=== PATIENT | male | born 1945 | race Caucasian/White ===

== ENCOUNTER 2021-10-25 18:19 | Emergency (ER) | payer OTHER ==
[~2021-10-25] VITALS: Ht 175.3 cm; Wt 90.7 kg
[~2021-10-25 18:19] MED LIST: DILT120C64; DOXA2TAB; LEVO112T20; SIMV40TA2
[2021-10-26] MEDS ORDERED: DexAMETHasone SOD PHOS 10MG/1ML VIAL INJ IM ONE
[2021-10-26] MEDS ORDERED: AMOX250C3 PO (00:06)
[2021-10-26 00:35] VITALS: BP 142/78
== END 2021-10-26 00:35 | disposition home or self-care (01) ==
LOC: ER 18:20
DX: J06.9 Acute upper respiratory infection, unspecified (principal); B97.89 Other viral agents as the cause of diseases classified elsewhere; I10 Essential (primary) hypertension; E78.5 Hyperlipidemia, unspecified; E03.9 Hypothyroidism, unspecified; Z79.899 Other long term (current) drug therapy; Z88.8 Allergy status to other drugs, medicaments and biological substances
CPT/HCPCS: 70490; 71250; 96374; 99284; J1100

== ENCOUNTER 2023-05-14 11:17 | Emergency (ER) | payer OTHER ==
[~2023-05-14] VITALS: Ht 175.3 cm; Wt 100.0 kg
[~2023-05-14 11:17] MED LIST changes: +AMOX250C3 PO; -DOXA2TAB; +DOXA2TAB84; -SIMV40TA2; +SIMV40TA42
[2023-05-14 11:44] VITALS: PULSE 70; RESP 20; O2SAT 95
[2023-05-14 11:58] LABS: Basophils # (auto) 0.1 10 ^3/uL (0-0.2); Basophils % (auto) 0.9 % (0.0-2.0); Eosinophils # (auto) 0.1 10 ^3/uL (0-0.8); Eosinophils % (auto) 0.9 % (0.0-7.0); Hematocrit 47.6 % (41.0-53.0); Lymphocytes # (auto) 1.5 10 ^3/uL (0.4-5.4); Lymphocytes % (auto) 11.1 % (10.0-50.0); Mean Corpuscular Hemoglobin 29.2 pg (28.0-32.0); Mean Corpuscular Hgb Conc. 33.7 g/dL (32.0-36.0); Mean Corpuscular Volume 86.6 fL (80.0-100.0); Monocytes # (auto) 0.9 10 ^3/uL (0-1.3); Monocytes % (auto) 6.6 % (0.0-12.0); Neutrophils % (auto) 80.5 % (37.0-80.0); Nucleated Red Blood Cells % 0.1 %; Red Cell Distribution Width 13.9 % (11.8-14.3); White Blood Cell 13.7 10^3/uL (4.4-10.8)
[2023-05-14 12:14] LABS: INR 1.13 (0.9-1.15); Partial Thromboplastin Time 27.9 SEC (24.5-34.5); Prothrombin Time 11.8 sec (9.3-11.8)
[2023-05-14 12:26] LABS: Alanine Aminotransferase 49 U/L (7-40); Albumin 5.2 g/dL (3.2-4.8); Alkaline Phosphatase 108 U/L (46-116); Anion Gap 9 (5-15); Aspartate Aminotransferase 33 U/L (13-40); BUN/Creatinine Ratio 18.6 (10.0-20.0); Bilirubin, Total 0.7 mg/dL (0.2-1.0); Blood Urea Nitrogen 18 mg/dL (9-23); Calcium 10.4 mg/dL (8.7-10.4); Carbon Dioxide 25 mmol/L (20-30); Chloride 101 mmol/L (98-107); Glucose 113 mg/dL (74-106); Sodium 135 mmol/L (136-145); Total Protein 7.5 g/dL (5.7-8.2)
[2023-05-14] MEDS ORDERED: PANTOPRAZOLE 40 MG/10 ML VIAL INJ IV ONE (12:30)
[2023-05-14] MEDS ORDERED: ONDANSETRON HCL 4 MG/2 ML VIAL IV ONE (12:30)
[2023-05-14] MEDS ORDERED: LORazepam 2MG/ML-1ML VIAL IV ONE (12:30)
[2023-05-14] MEDS ORDERED: SODIUM CHLORIDE 0.9% 1,000 ML IV ONE (12:30)
[2023-05-14 13:10] LABS: Amphetamine Screen, Urine Neg (NEGATIVE); Barbiturate Scree,Urine Neg (NEGATIVE); Benzodiazephine Screen, Urine Neg (NEGATIVE); Cannabinoid Screen, Urine Pos (NEGATIVE); Cocaine Screen, Urine Neg (NEGATIVE); Opiate Scree,Urine Pos (NEGATIVE); Phencyclidine Screen, Urine Neg (NEGATIVE)
[2023-05-14 13:11] LABS: Blood Alcohol < 3.0 mg/dL (<10)
[2023-05-14] MEDS ORDERED: ASPirin 81 mg TAB PO ONE (14:30)
[2023-05-14] MEDS ORDERED: NITROGLYCERIN 0.4 MG SL TAB SL ONE (14:30)
[2023-05-14 14:45] VITALS: BP 125/70; PULSE 84; RESP 16; TEMP 98.9
[2023-05-14 14:49] VITALS: O2SAT 97
== END 2023-05-14 16:33 | disposition left against medical advice (07) ==
LOC: ER 11:17 → EDBD 11:17 → ER 16:33
DX: R07.89 Other chest pain (principal); I10 Essential (primary) hypertension; E78.5 Hyperlipidemia, unspecified; J45.909 Unspecified asthma, uncomplicated; Z88.8 Allergy status to other drugs, medicaments and biological substances
CPT/HCPCS: 36415; 80053; 80307; 80320; 82962; 83735; 83880; 84443; 84484; 85025; 85610; 85730; 93005; 96361; 96374; 96375; 99285; C9113; J2060; J2405; J7030

== ENCOUNTER 2023-05-15 17:03 | Emergency (ER) | payer OTHER ==
[~2023-05-15] VITALS: Ht 175.3 cm; Wt 100.0 kg
[2023-05-15 18:53] LABS: Alanine Aminotransferase 38 U/L (7-40); Albumin 4.7 g/dL (3.2-4.8); Alkaline Phosphatase 101 U/L (46-116); Anion Gap 10 (5-15); Aspartate Aminotransferase 23 U/L (13-40); BUN/Creatinine Ratio 17.9 (10.0-20.0); Bilirubin, Total 0.6 mg/dL (0.2-1.0); Blood Urea Nitrogen 19 mg/dL (9-23); Calcium 10.1 mg/dL (8.7-10.4); Carbon Dioxide 22 mmol/L (20-30); Chloride 103 mmol/L (98-107); Glucose 91 mg/dL (74-106); Potassium 5.2 mmol/L (3.5-5.1); Sodium 135 mmol/L (136-145); Total Protein 6.9 g/dL (5.7-8.2)
[2023-05-15 19:01] LABS: Basophils # (auto) 0.1 10 ^3/uL (0-0.2); Basophils % (auto) 0.7 % (0.0-2.0); Eosinophils # (auto) 0.1 10 ^3/uL (0-0.8); Eosinophils % (auto) 0.7 % (0.0-7.0); Hematocrit 44.9 % (41.0-53.0); Lymphocytes # (auto) 1.8 10 ^3/uL (0.4-5.4); Lymphocytes % (auto) 11.2 % (10.0-50.0); Mean Corpuscular Hemoglobin 29.2 pg (28.0-32.0); Mean Corpuscular Hgb Conc. 33.3 g/dL (32.0-36.0); Mean Corpuscular Volume 87.7 fL (80.0-100.0); Monocytes # (auto) 1.4 10 ^3/uL (0-1.3); Monocytes % (auto) 9.2 % (0.0-12.0); Neutrophils # (auto) 12.2 10 ^3/uL (1.6-8.6); Neutrophils % (auto) 78.2 % (37.0-80.0); Nucleated Red Blood Cells % 0.1 %; Red Blood Cells 5.12 10^6/uL (4.5-5.90); Red Cell Distribution Width 14.2 % (11.8-14.3); White Blood Cell 15.7 10^3/uL (4.4-10.8)
[2023-05-16 02:55] VITALS: PULSE 105; RESP 20; TEMP 98.1; O2SAT 96
[2023-05-16] MEDS ORDERED: ALPRAZolam 0.5 MG TAB PO ONE (04:00)
[2023-05-16] MEDS ORDERED: LORA-1121 PO (07:03)
[2023-05-16 08:50] VITALS: BP 115/78; PULSE 95; RESP 18; O2SAT 97
== END 2023-05-16 08:50 | disposition home or self-care (01) ==
LOC: EDUNIT# 17:03 → ER 17:03 → EDBD 17:03 → ER 05-16 08:50
DX: F41.8 Other specified anxiety disorders (principal); R07.89 Other chest pain; I10 Essential (primary) hypertension; E78.5 Hyperlipidemia, unspecified; E03.9 Hypothyroidism, unspecified; Z90.49 Acquired absence of other specified parts of digestive tract; Z86.73 Personal history of transient ischemic attack (TIA), and cerebral infarction without residual deficits; Z90.89 Acquired absence of other organs; Z79.2 Long term (current) use of antibiotics; Z79.899 Other long term (current) drug therapy; Z88.8 Allergy status to other drugs, medicaments and biological substances
CPT/HCPCS: 36415; 71046; 80053; 84484; 85025

== ENCOUNTER 2023-05-26 19:18 | Emergency (ER) | payer OTHER ==
[~2023-05-26] VITALS: Ht 177.8 cm; Wt 113.4 kg
[~2023-05-26 19:18] MED LIST changes: +LORA-1121 PO
[2023-05-26] MEDS ORDERED: LORazepam 2MG/ML-1ML VIAL IV ONE (19:30)
[2023-05-26 19:47] VITALS: PULSE 71; RESP 21; O2SAT 99
[2023-05-26 19:56] LABS: Basophils # (auto) 0.1 10 ^3/uL (0-0.2); Basophils % (auto) 0.8 % (0.0-2.0); Eosinophils # (auto) 0.3 10 ^3/uL (0-0.8); Eosinophils % (auto) 2.7 % (0.0-7.0); Hematocrit 45.4 % (41.0-53.0); Hemoglobin 15.1 g/dL (13.5-17.5); Lymphocytes # (auto) 2.4 10 ^3/uL (0.4-5.4); Lymphocytes % (auto) 21.7 % (10.0-50.0); Mean Corpuscular Hemoglobin 29.5 pg (28.0-32.0); Mean Corpuscular Hgb Conc. 33.3 g/dL (32.0-36.0); Mean Corpuscular Volume 88.6 fL (80.0-100.0); Monocytes # (auto) 1.3 10 ^3/uL (0-1.3); Monocytes % (auto) 11.5 % (0.0-12.0); Neutrophils % (auto) 63.3 % (37.0-80.0); Red Blood Cells 5.12 10^6/uL (4.5-5.90); Red Cell Distribution Width 14.1 % (11.8-14.3); White Blood Cell 11.1 10^3/uL (4.4-10.8)
[2023-05-26 20:11] LABS: Alanine Aminotransferase 39 U/L (7-40); Albumin 4.7 g/dL (3.2-4.8); Alkaline Phosphatase 110 U/L (46-116); Anion Gap 9 (5-15); Aspartate Aminotransferase 23 U/L (13-40); BUN/Creatinine Ratio 10.1 (10.0-20.0); Blood Urea Nitrogen 11 mg/dL (9-23); Calcium 9.9 mg/dL (8.7-10.4); Carbon Dioxide 24 mmol/L (20-30); Chloride 101 mmol/L (98-107); Glucose 126 mg/dL (74-106); Magnesium 2.1 mg/dL (1.6-2.6); Potassium 4.2 mmol/L (3.5-5.1); Sodium 134 mmol/L (136-145)
[2023-05-26 20:13] LABS: Urine Bacteria NONE SEEN /hpf (None Seen); Urine Blood Negative /uL (Negative); Urine Clarity Clear (Clear); Urine Color Colorless (Yellow); Urine Protein, UAD Negative (Negative); Urine Specific Gravity 1.005 (1.001-1.035); Urine Urobilinogen Normal (Negative); Urine WBC <1 /hpf (0 - 3); Urine pH 5.5 (5.0-8.0)
[2023-05-26 20:14] LABS: INR 1.04 (0.9-1.15); Partial Thromboplastin Time 27.9 SEC (24.5-34.5); Prothrombin Time 10.9 sec (9.3-11.8)
[2023-05-26 20:35] LABS: Bilirubin, Total 0.7 mg/dL (0.2-1.0)
[2023-05-27] VITALS: BP 124/61; PULSE 65; RESP 22; TEMP 97.9; O2SAT 93
== END 2023-05-27 02:21 | disposition short-term general hospital (02) ==
LOC: ER 19:18 → EDBD 19:18 → ER 05-27 00:45
DX: I24.9 Acute ischemic heart disease, unspecified (principal); R07.9 Chest pain, unspecified; D72.829 Elevated white blood cell count, unspecified; I10 Essential (primary) hypertension; E78.5 Hyperlipidemia, unspecified; Z86.73 Personal history of transient ischemic attack (TIA), and cerebral infarction without residual deficits
CPT/HCPCS: 36415; 71045; 80053; 81001; 83735; 83880; 84484; 85025; 85610; 85730; 93005; 96374; 99285; J2060

== ENCOUNTER 2024-05-09 13:25 | Emergency (ER) | payer OTHER ==
[~2024-05-09] VITALS: Ht 175.3 cm; Wt 100.0 kg
[2024-05-09] MEDS ORDERED: LORazepam 0.5 MG TAB PO ONE (13:45)
[2024-05-09 14:41] LABS: Basophils # (auto) 0.1 10 ^3/uL (0-0.2); Basophils % (auto) 0.8 % (0.0-2.0); Eosinophils # (auto) 0.1 10 ^3/uL (0-0.8); Hematocrit 47.5 % (41.0-53.0); Hemoglobin 16.3 g/dL (13.5-17.5); Lymphocytes # (auto) 1.6 10 ^3/uL (0.4-5.4); Lymphocytes % (auto) 14.4 % (10.0-50.0); Mean Corpuscular Hemoglobin 30.6 pg (28.0-32.0); Mean Corpuscular Hgb Conc. 34.2 g/dL (32.0-36.0); Mean Corpuscular Volume 89.4 fL (80.0-100.0); Monocytes # (auto) 1.3 10 ^3/uL (0-1.3); Monocytes % (auto) 11.6 % (0.0-12.0); Neutrophils # (auto) 7.9 10 ^3/uL (1.6-8.6); Neutrophils % (auto) 72.2 % (37.0-80.0); Nucleated Red Blood Cells % 0.1 %; Platelet Count (auto) 284 10^3/uL (140-450); Red Blood Cells 5.31 10^6/uL (4.5-5.90); Red Cell Distribution Width 14.3 % (11.8-14.3)
[2024-05-09] MEDS: LORazepam 0.5 MG TAB PO ONE (14:47)
[2024-05-09 15:12] LABS: Alanine Aminotransferase 29 U/L (7-40); Albumin 4.6 g/dL (3.2-4.8); Alkaline Phosphatase 103 U/L (46-116); Anion Gap 7 (5-15); Aspartate Aminotransferase 15 U/L (13-40); Bilirubin, Total 0.6 mg/dL (0.2-1.0); Blood Alcohol < 3.0 mg/dL (<10); Blood Urea Nitrogen 16 mg/dL (9-23); Calcium 10.2 mg/dL (8.7-10.4); Carbon Dioxide 25 mmol/L (20-31); Chloride 107 mmol/L (98-107); Glucose 103 mg/dL (74-106); Potassium 3.8 mmol/L (3.5-5.1); Sodium 139 mmol/L (136-145)
[2024-05-09 16:43] LABS: Urine Bacteria None Seen /hpf (None Seen)
[2024-05-09 17:12] LABS: Urine Blood Negative /uL (Negative); Urine Clarity Clear (Clear); Urine Color Yellow (Yellow); Urine Mucus FEW (None Seen); Urine Protein, UAD Negative (Negative); Urine Urobilinogen Normal (Negative); Urine WBC 2 /hpf (0 - 3)
[2024-05-09 17:17] LABS: Amphetamine Screen, Urine Neg (NEGATIVE); Barbiturate Scree,Urine Neg (NEGATIVE); Benzodiazephine Screen, Urine Neg (NEGATIVE); Cannabinoid Screen, Urine Pos (NEGATIVE); Cocaine Screen, Urine Neg (NEGATIVE); Opiate Scree,Urine Neg (NEGATIVE); Phencyclidine Screen, Urine Neg (NEGATIVE)
[2024-05-09] MEDS ORDERED: HYDR50TA32 PO (21:13)
[2024-05-09 22:13] VITALS: BP 146/90; PULSE 87; RESP 19; TEMP 97.6; O2SAT 97
== END 2024-05-09 22:13 | disposition home or self-care (01) ==
LOC: EDBD 13:25 → ER 13:37
DX: F41.9 Anxiety disorder, unspecified (principal); I10 Essential (primary) hypertension; E07.9 Disorder of thyroid, unspecified; E78.5 Hyperlipidemia, unspecified; Z86.73 Personal history of transient ischemic attack (TIA), and cerebral infarction without residual deficits; Z90.49 Acquired absence of other specified parts of digestive tract; Z90.89 Acquired absence of other organs; Z98.890 Other specified postprocedural states; Z79.899 Other long term (current) drug therapy
CPT/HCPCS: 36415; 80053; 80307; 80320; 81001; 83880; 84484; 85025; 93005

== ENCOUNTER 2024-06-07 10:15 | Inpatient (IN) | payer OTHER ==
[~2024-06-07] VITALS: Ht 175.3 cm; Wt 94.4 kg
[~2024-06-07 10:15] MED LIST changes: +HYDR50TA32 PO; -LEVO112T20; +LEVO112T20 PO
--- NOTE | 2024-06-07 10:56 | ED.PDOC ---
HPI Comments 78 y.o male with PMH of TIA, [place], CHF, HTN, hyperlipidemia, PreDM, thyroid disease, asthma, depression, presents to the ED via EMS for a chief complaint of left sided chest discomfort radiating to his left arm that started 2 weeks ago. Patient reports pain is constant, rating a 4/10 today and later decreasing to 2/10 s/p EMS giving 324mg ASA and 0.5mg NTG on scene. Patient also complains of exertional dyspnea. No alleviating or precipitating factors reported. Patient was seen by his PCP on 05/29/24 at [facility], had a WBC of 29.3 and was placed on antibiotics. Patient at this time denies any nausea, vomiting, diarrhea, abdominal pain, fever, chills or leg swelling. Patient is compliant with all medication intake. Chief Complaint: Chest Pain Time Seen by MD: 10:32 Primary Care Provider: FLAXTON Reviewed Notes: Nurses Notes, Machine Programmer Notes, Medications, Allergies Allergies: Coded Allergies: Methysergide (Verified Allergy, Unknown, PSYCH/VISION, 05/14/23) Naproxen (Verified Allergy, Unknown, 05/14/23) Home Meds Active Scripts Hydroxyzine HCl (Hydroxyzine Hydrochloride) 50 Mg Tab, 50 MG PO Q6HP PRN, #30 TAB prn anxiety Prov:MARCIAL WEST MD 05/09/24 Lorazepam (ATIVAN TABLET) 0.5 Mg Tb, 1 TAB PO DAILY, #30 TAB Prov:BRITTNEY COUCH MD 05/16/23 Amoxicillin Trihydrate (Amoxicillin) 250 Mg Cap, 250 MG PO Q8HR for 7 Days, #28 MG Prov:LISA RIVERA MD 10/26/21 Reported Medications Simvastatin (Zocor) 40 Mg Tab 02/26/11 Levothyroxine Sodium (Levothroid) 112 Mcg Tab 02/26/11 Diltiazem Hcl (Diltiazem Cd) 120 Mg Cap 02/26/11 Doxazosin Mesylate (Cardura) 2 Mg Tab 02/26/11 Information Source: Patient, Emergency Med Personnel Mode of Arrival: EMS Severity: Moderate Timing: Weeks (2) Duration: Since onset Prehospital treatment: 12 Lead EKG, ASA, Wind Turbine Technician, NTG Location: Chest (L) Radiation: Arm (L) Quality: Aching Onset: At Rest Cardiac Risk Factors: Family History, Hyperlipidemia, HTN, Diabetes PE Risk Factors: None History of: [place] Modifying Factors: Nothing; Exertion Associated Signs and Symptoms: SOB Past Medical History PAST MEDICAL HISTORY: Anxiety, High Lipids, HTN, [place], Thyroid, TIA Surgical History: Appendectomy, Hernia Repair, Tonsillectomy Family History Family History: Family hx of heart donn Social History Smoker: Non-Smoker Alcohol: Denies ETOH Use Drugs: Denies Drug Use Lives In: Home Constitutional: denies: chills, diaphoresis, fatigue, fever, malaise, sweats, weakness, others EENTM: denies: blurred vision, double vision, ear bleeding, ear discharge, ear drainage, ear pain, ear ringing, eye pain, eye redness, hearing loss, mouth pain, mouth swelling, nasal discharge, nose bleeding, nose congestion, nose pain, photophobia, tearing, throat pain, throat swelling, voice changes, others Respiratory: reports: shortness of breath, SOB with excertion; denies: cough, hemoptysis, orthopnea, SOB at rest, stridor, wheezing, others Cardiovascular: reports: chest pain, left arm pain; denies: dizzy spells, diaphoresis, Dyspnea on exertion, edema, irregular heart beat, lightheadedness, palpitations, PND, syncope, others Gastrointestinal: denies: abdomen distended, abdominal pain, blood streaked bowels, constipated, diarrhea, dysphagia, difficulty swallowing, hematemesis, melena, nausea, poor appetite, poor fluid intake, rectal bleeding, rectal pain, vomiting, others Genitourinary: denies: burning, dysuria, flank pain, frequency, hematuria, incontinence, penile discharge, penile sore, pain, testicle pain, testicle swelling, urgency, others Neurological: denies: dizziness, fainting, headache, left sided numbness, left sided weakness, numbness, paresthesia, pre-existing deficit, right sided numbness, right sided weakness, seizure, speech problems, tingling, tremors, weakness, others Musculoskeletal: denies: back pain, gout, joint pain, joint swelling, muscle pain, muscle stiffness, neck pain, others Integumetry: denies: bruises, change in color, change in hair/nails, dryness, laceration, lesions, lumps, rash, wounds, others Allergic/Immunocompromised: denies: Difficulty Healing, Frequent Infections, Hives, Itching, others Hematologic/Lymphatic: denies: anemia, blood clots, easy bleeding, easy bruising, swollen glands, others Endocrine: denies: excessive hunger, excessive sweating, excessive thirst, excessive urination, flushing, intolerance to cold, intolerance to heat, unexplained weight gain, unexplained weight loss, others Psychiatric: denies: anxiety, bipolar disorder, depression, hopeless, panic disorder, schizophrenia, sleepless, suicidal, others All Other Systems: Reviewed and Negative Physical Exam General Appearance: Moderate Distress HEENT: Normal ENT Inspection, Pharynx Normal, TMs Normal Neck: Full Range of Motion, Non-Tender, Normal, Normal Inspection Respiratory: Chest Non-Tender, Lungs Clear, No Accessory Muscle Use, No Respiratory Distress, Normal Breath Sounds Cardiovascular: No Edema, No JVD, No Murmur, No Gallop, Normal Peripheral Pulses, Regular Rate/Rhythm Breast Exam: Deferred Gastrointestinal: No Organomegaly, Non Tender, No Pulsatile Mass, Normal Bowel Sounds, Soft Genitalia: Deferred Pelvic: Deferred Rectal: Deferred Extremities: No calf tenderness, Normal capillary refill, Normal inspection, Normal range of motion, Non-tender, No pedal edema Musculoskeletal : Apperance: Normal Neurologic: Alert, reconditioning associate II-XII nml as Tested, No Motor Deficits, Normal Affect, Normal Mood, No Sensory Deficits Cerebellar Function: Normal Reflexes: Normal Skin: Dry, Normal Color, Warm Lymphatic: No Adenopathy EKG EKG : Pulse Rate (adult): 92 [place]: LAD Cardiac Rhythm: NSR ST: Nonsp Was a procedure done? Was a procedure done?: No CP Differential Dx Differential Diagnosis: [place] Differential Diagnosis: Angina, Chest Wall Pain, Costochondritis, Gastritis, Myocardial Infarction, Pericarditis X-Ray, Labs, Meds, VS Vital Signs Date Time Temp Pulse Resp B/P (MAP) Pulse Ox O2 Delivery O2 Flow Rate FiO2 06/07/24 13:15 102 17 94/61 (72) 99 06/07/24 11:20 90 06/07/24 11:15 98.0 96 16 130/73 (92) 97 98.0 06/07/24 11:15 96 16 97 Room Air* 0 21 06/07/24 10:57 98.3 112 16 168/80 (109) 98 06/07/24 10:56 92 11/8/24 10:19 92 Lab Test 06/07/24 13:15 06/07/24 11:15 06/07/24 11:10 Range/Units Lactic Acid Level Pending 2.1 H 0.4-2.0 mmol/L Troponin I High Sensitivity 10 9 </=54 ng/L White Blood Count 12.3 H 4.4-10.8 10^3/uL Red Blood Count 5.49 4.5-5.90 10^6/uL Hemoglobin 16.5 13.5-17.5 g/dL Hematocrit 48.7 41.0-53.0 % Mean Corpuscular Volume 88.7 80.0-100.0 fL Mean Corpuscular Hemoglobin 30.1 28.0-32.0 pg Mean Corpuscular Hemoglobin Concent 33.9 32.0-36.0 g/dL Red Cell Distribution Width 14.4 H 11.8-14.3 % Platelet Count 422 140-450 10^3/uL Mean Platelet Volume 7.6 6.9-10.8 fL Neutrophils (%) (Auto) 75.3 37.0-80.0 % Lymphocytes (%) (Auto) 12.2 10.0-50.0 % Monocytes (%) (Auto) 10.7 0.0-12.0 % Eosinophils (%) (Auto) 1.0 0.0-7.0 % Basophils (%) (Auto) 0.8 0.0-2.0 % Neutrophils # (Auto) 9.3 H 1.6-8.6 10 ^3/uL Lymphocytes # (Auto) 1.5 0.4-5.4 10 ^3/uL Monocytes # (Auto) 1.3 0-1.3 10 ^3/uL Eosinophils # (Auto) 0.1 0-0.8 10 ^3/uL Basophils # (Auto) 0.1 0-0.2 10 ^3/uL Nucleated Red Blood Cells 0.1 % Sodium Level 139 136-145 mmol/L Potassium Level 4.2 3.5-5.1 mmol/L Chloride Level 105 98-107 mmol/L Carbon Dioxide Level 27 20-31 mmol/L Anion Gap 7 5-15 Blood Urea Nitrogen 16 9-23 mg/dL Creatinine 1.00 0.700-1.30 mg/dL Glomerular Filtration Rate Calc 78 >90 mL/min BUN/Creatinine Ratio 16.0 10.0-20.0 Serum Glucose 118 H 74-106 mg/dL Calcium Level 10.4 8.7-10.4 mg/dL B-Type Natriuretic Peptide 70.42 0-100 pg/mL Urine Color Light-yellow Yellow Urine Clarity Clear Clear Urine pH 6.0 5.0-9.0 Urine Specific [place] 1.005 1.001-1.035 Urine Protein Negative Negative Urine Ketones Negative Negative Urine Blood Negative Negative /uL Urine Nitrite Negative Negative Urine Bilirubin Negative Negative Urine Urobilinogen Normal Negative mg/dL Urine Leukocyte Esterase Negative Negative /uL Urine RBC 1 0 - 3 /hpf Urine WBC <1 0 - 3 /hpf Urine Squamous Epithelial Cells None seen <5 /hpf Urine Bacteria None seen None Seen /hpf Urine Glucose Normal Normal mg/dL Current Medications Medications (Trade) Dose Ordered Sig/Shruthi Route Start Time Stop Time Status Last Admin Lorazepam (Ativan Inj) 0.5 mg ONCE ONCE IV 06/07/24 11:30 06/07/24 11:31 DC 06/07/24 11:35 CHEST RADIOGRAPH IMPRESSION: No acute cardiopulmonary disease. The urine test is negative The patient was given Ativan 0.9 mg IV push The patient was still having persistent chest pain The patient's CBC and chemistry panel came back within normal limits except for an elevated CBC of 12.3 The lactic acid level is 2.1 The chemistry panel is within normal limits The BNP is within normal limits. We contacted [facility] and the patient is considered to be unstable for transfer secondary to the persistent chest pain At this time, they did give us authorization for admission The admission authorization #[id number] Images Reviewed?: Images reviewed and evaluated by me Time of 1ST Reevaluation: 10:56 Reevaluation 1ST: Unchanged Patient Education/Counseling: Diagnosis, Treatment, Prognosis Family Education/Counseling: No Family Present Departure 1 Departure Time of Disposition: 12:53 Impression: Primary Impression: Acute myocardial ischemia Disposition: 09 ADMITTED INPATIENT Admit to: [facility] Condition: Fair Critical Care Note Critical Care Time?: No Stability Stability form required: Yes Unstable for transfer: Telemetry monitoring (Telemetry monitoring required), ED Physician Assesment (Clinical assesment) Heart Score Heart Score: Heart Score Response (Comments) Value History Moderate Suspicious 1 EKG Normal 0 Age >65 2 Risk Factors >3 or Hx ASHD 2 Troponin N/A 0 Total 5 I personally scribed for BRITTNEY COUCH MD ([email or web address]) on 06/07/24 at 10:56. Electronically submitted by Susan Fuentes ([facility]). I personally scribed for BRITTNEY COUCH MD ([email or web address]) on 06/07/24 at 12:44. Electronically submitted by Susan Fuentes ([facility]). BRITTNEY COUCH MD Jun 07, 2024 10:56
[2024-06-07 11:15] VITALS: PULSE 96; RESP 16; O2SAT 97
[2024-06-07 11:33] LABS: Urine Bacteria None Seen /hpf (None Seen)
[2024-06-07 11:34] LABS: Basophils # (auto) 0.1 10 ^3/uL (0-0.2); Basophils % (auto) 0.8 % (0.0-2.0); Eosinophils # (auto) 0.1 10 ^3/uL (0-0.8); Hematocrit 48.7 % (41.0-53.0); Hemoglobin 16.5 g/dL (13.5-17.5); Lymphocytes # (auto) 1.5 10 ^3/uL (0.4-5.4); Lymphocytes % (auto) 12.2 % (10.0-50.0); Mean Corpuscular Hemoglobin 30.1 pg (28.0-32.0); Mean Corpuscular Hgb Conc. 33.9 g/dL (32.0-36.0); Mean Corpuscular Volume 88.7 fL (80.0-100.0); Monocytes # (auto) 1.3 10 ^3/uL (0-1.3); Monocytes % (auto) 10.7 % (0.0-12.0); Neutrophils # (auto) 9.3 10 ^3/uL (1.6-8.6); Neutrophils % (auto) 75.3 % (37.0-80.0); Nucleated Red Blood Cells % 0.1 %; Platelet Count (auto) 422 10^3/uL (140-450); Red Blood Cells 5.49 10^6/uL (4.5-5.90); Red Cell Distribution Width 14.4 % (11.8-14.3); White Blood Cell 12.3 10^3/uL (4.4-10.8)
[2024-06-07] MEDS: LORazepam 2MG/ML-1ML VIAL IV ONE (11:35)
[2024-06-07 11:41] LABS: Urine Blood Negative /uL (Negative); Urine Clarity Clear (Clear); Urine Color Light-Yellow (Yellow); Urine Protein, UAD Negative (Negative); Urine Specific Gravity 1.005 (1.001-1.035); Urine Urobilinogen Normal (Negative); Urine WBC <1 /hpf (0 - 3)
[2024-06-07 11:43] LABS: Chloride 105 mmol/L (98-107); Potassium 4.2 mmol/L (3.5-5.1); Sodium 139 mmol/L (136-145)
--- NOTE | 2024-06-07 11:43 | ECG ---
[facility] Test Date: 2024-06-07 Test Time: 10:19:08 Pat Name: ANA LAURA CAO Department: ED Room: Gender: M Gut Dropper: JAMEL : 1945 Requested By: BRITTNEY COUCH Order Number: [id number] Reading MD: Measurements Intervals [place] Rate: 92 P: 40 [place]: 240 QRS: -65 QRSD: 113 T: 36 QT: 372 QTc: 461 Interpretive Statements Sinus rhythm Multiform ventricular premature complexes Prolonged [place] interval LAD, consider left anterior fascicular block Anteroseptal infarct, old Minimal ST depression, inferior leads Minimal ST elevation, lateral leads Please click the below link to view image of tracing.
[2024-06-07 11:44] LABS: Anion Gap 7 (5-15); Calcium 10.4 mg/dL (8.7-10.4); Carbon Dioxide 27 mmol/L (20-31)
--- NOTE | 2024-06-07 11:44 | ECG ---
[facility] Test Date: 2024-06-07 Test Time: 11:20:51 Pat Name: ANA LAURA CAO Department: ED Room: Gender: M Pressing Department Supervisor: JAMEL : 1945 Requested By: BRITTNEY COUCH Order Number: [id number] Reading MD: Measurements Intervals [place] Rate: 90 P: -36 [place]: 240 QRS: -65 QRSD: 114 T: 73 QT: 364 QTc: 446 Interpretive Statements Sinus rhythm Ventricular premature complex Prolonged [place] interval LAD, consider left anterior fascicular block Probable anteroseptal infarct, old Please click the below link to view image of tracing.
[2024-06-07 11:48] LABS: Lactic Acid w/Reflex 2.1 mmol/L (0.4-2.0)
[2024-06-07 11:49] LABS: Blood Urea Nitrogen 16 mg/dL (9-23); Glucose 118 mg/dL (74-106)
--- NOTE | 2024-06-07 12:17 | DVH ---
CHEST RADIOGRAPH Indication:sob Technique: Single frontal view of the chest was obtained Comparison: XY CHEST PORTABLE on DOS: 05/26/23 FINDINGS: Lines and Tubes: None Lungs: No focal consolidation. Pleura: No effusion. No pneumothorax. Cardiomediastinal contours: Unremarkable Bones: No acute osseous abnormality. IMPRESSION: No acute cardiopulmonary disease.
[2024-06-07] MEDS ORDERED: NITROGLYCERIN 0.4 MG SL TAB SL PRN (15:15)
[2024-06-07] MEDS ORDERED: HYDROcodone-ACET 5/325MG TAB PO PRN (15:15)
[2024-06-07] MEDS ORDERED: ACETAMINOPHEN 500 MG TAB PO PRN (15:15)
[2024-06-07] MEDS ORDERED: ONDANSETRON HCL 4 MG/2 ML VIAL IV PRN (15:15)
[2024-06-07] MEDS ORDERED: MORPHINE SULFATE INJ 2 MG/ml SYRG IV PRN ×2 (15:15)
--- NOTE | 2024-06-07 15:16 | DVHHP2 ---
History of Present Illness Reason for Visit: Palpitations,-Arm paresthesia, tremors History of Present Illness Patient was a 78-year-old male presenting to the emergency room with multiple complaints including palpitations, tremors to his upper extremities, swelling to his hands and feet, as well as reporting finishing an antibiotic course by his primary doctor at [place] for which she states he was not given a diagnosis. Patient states that he was told his white blood cell count was elevated, and has been having: Flu-like symptoms since the end of March. Twelve lead ECG in terpretation reveals first-degree block at as well as left anterior fascicular block. Bedside EKG reveals questionable second-degree type 1 heart block. Significant history of the patient includes severe anxiety disorder, hypertension, dyslipidemia, patient is and BPH. Cardiovascular: HTN, hyperipidemia Pulmonary: Pneumonia Psych: Anxiety Renal/: Benign prostatic enlarg. Endocrine: Hypothyroidism Past Surgical History: None Smoke: # pack years ALCOHOL: none Drugs: None Lives: with Family Review of Systems Constitutional: Yes: Weakness, Malaise Eyes: No: Pain, Vision change, Conjunctivae inflammation, Eyelid inflammation, Other, Redness ENT: No: Ear pain, Ear discharge, Nose pain, Nose discharge, Nose congestion, Mouth pain, Mouth swelling, Throat pain, Throat swelling, Other Respiratory: No: Cough, Dry, Shortness of breath, SOB with excertion, Wheezing, Hemoptysis, Pleuritic Pain, Sputum, Wheezing, Other Cardiovascular: Chest Pain, Palpitations Gastrointestinal: No: Nausea, Vomiting, Abdominal Pain, Diarrhea, Constipation, Melena, Hematochezia, Other Genitourinary: No Dysuria, No Frequency, No Incontinence, No Hematuria, No Retention, No Other Musculoskeletal: No: other, neck pain, shoulder pain, arm pain, back pain, hand pain, leg pain, foot pain Skin: No: Rash, Lesions, Jaundice, Bruising, Other Neurological: No: Weakness, Numbness, Incoordination, Change in speech, Confusion, Seizures, Other Allergies: Coded Allergies: Methysergide (Verified Allergy, Unknown, PSYCH/VISION, 05/14/23) Naproxen (Verified Allergy, Unknown, 05/14/23) Exam Vital Signs Vital Signs Date Time Temp Pulse Resp B/P (MAP) Pulse Ox O2 Delivery O2 Flow Rate FiO2 06/07/24 14:12 82 15 121/88 (99) 98 06/07/24 11:15 98.0 98.0 06/07/24 11:15 Room Air* 0 21 General Appearance: Alert, Oriented X3, Cooperative, mild distress HEENT: Atraumatic, PERRLA Respiratory: Clear to auscultation, Normal air movement Cardiovascular: Normal S1, Normal S2 Abdominal: Normal bowel sounds, Soft, No tenderness, No hepatospenomegaly Extremities: No clubbing, No cyanosis, No edema, Normal pulses, No tenderness/swelling Skin: No rashes, No breakdown Neuro: Normal gait, Normal speech, Cranial nerves 3-12 NL Psych/Mental Status: Mental status NL, Mood NL Labs/Xrays Labs Test 06/07/24 13:15 06/07/24 11:15 06/07/24 11:10 Range/Units Lactic Acid Level 1.5 0.4-2.0 mmol/L Troponin I High Sensitivity 10 </=54 ng/L White Blood Count 12.3 H 4.4-10.8 10^3/uL Red Blood Count 5.49 4.5-5.90 10^6/uL Hemoglobin 16.5 13.5-17.5 g/dL Hematocrit 48.7 41.0-53.0 % Mean Corpuscular Volume 88.7 80.0-100.0 fL Mean Corpuscular Hemoglobin 30.1 28.0-32.0 pg Mean Corpuscular Hemoglobin Concent 33.9 32.0-36.0 g/dL Red Cell Distribution Width 14.4 H 11.8-14.3 % Platelet Count 422 140-450 10^3/uL Mean Platelet Volume 7.6 6.9-10.8 fL Neutrophils (%) (Auto) 75.3 37.0-80.0 % Lymphocytes (%) (Auto) 12.2 10.0-50.0 % Monocytes (%) (Auto) 10.7 0.0-12.0 % Eosinophils (%) (Auto) 1.0 0.0-7.0 % Basophils (%) (Auto) 0.8 0.0-2.0 % Neutrophils # (Auto) 9.3 H 1.6-8.6 10 ^3/uL Lymphocytes # (Auto) 1.5 0.4-5.4 10 ^3/uL Monocytes # (Auto) 1.3 0-1.3 10 ^3/uL Eosinophils # (Auto) 0.1 0-0.8 10 ^3/uL Basophils # (Auto) 0.1 0-0.2 10 ^3/uL Nucleated Red Blood Cells 0.1 % Sodium Level 139 136-145 mmol/L Potassium Level 4.2 3.5-5.1 mmol/L Chloride Level 105 98-107 mmol/L Carbon Dioxide Level 27 20-31 mmol/L Anion Gap 7 5-15 Blood Urea Nitrogen 16 9-23 mg/dL Creatinine 1.00 0.700-1.30 mg/dL Glomerular Filtration Rate Calc 78 >90 mL/min BUN/Creatinine Ratio 16.0 10.0-20.0 Serum Glucose 118 H 74-106 mg/dL Calcium Level 10.4 8.7-10.4 mg/dL B-Type Natriuretic Peptide 70.42 0-100 pg/mL Urine Color Light-yellow Yellow Urine Clarity Clear Clear Urine pH 6.0 5.0-9.0 Urine Specific [place] 1.005 1.001-1.035 Urine Protein Negative Negative Urine Ketones Negative Negative Urine Blood Negative Negative /uL Urine Nitrite Negative Negative Urine Bilirubin Negative Negative Urine Urobilinogen Normal Negative mg/dL Urine Leukocyte Esterase Negative Negative /uL Urine RBC 1 0 - 3 /hpf Urine WBC <1 0 - 3 /hpf Urine Squamous Epithelial Cells None seen <5 /hpf Urine Bacteria None seen None Seen /hpf Urine Glucose Normal Normal mg/dL Assessment/Plan Assessment/Plan Impression: -palpitations -bifascicular heart block, rule out second-degree type 1 heart block -rule out ACS -obesity -anxiety disorder -leukocytosis -BPH -dyslipidemia -hypothyroidism Plan: -patient continues to have multiple symptoms and has been deemed unstable to transfer to [facility] from the ER. -troponins x3, currently unremarkable -EKG x3 -start aspirin -check ESR, CRP -check TSH given patient reports having hypothyroidism and has difficulty sleeping more than 2 hours a night. -restart statin -echocardiogram -further course of treatment per diagnostic findings Total time spent with patient discussing and formulating plan of care: 35 minutes. This medical document was created using an electronic medical record system with [employer] dictation system. Although this document has been carefully reviewed, there may still be some phonetic and typographical errors. These areas are purely typographical due to imperfections of the software programs, and do not reflect any compromise in the patient's medical care. Plan discussed with: Patient, Other (RN) My Orders Orders - MELISSA BRAVO NP Procedure Category Date Status Time Admit ADMIT 06/07/24 Verified 15:01 Nitroglycerin PHA 06/07/24 Verified Sublingual (Ntrostat 15:15 Morphine Sulfate PHA 06/07/24 Verified Injection 15:15 Stat Ekg For Chest SHORTY 06/07/24 Verified Pain 15:01 Notify Md Of Changes [facility] 06/07/24 Verified From Base 15:01 Biomedical Service Engineer For [facility] 06/07/24 Verified 24 Hours 15:01 Emergency Dysrhythmia [facility] 06/07/24 Verified Protocol 15:01 Rhythm Strips Once SHORTY 06/07/24 Verified Every Shift 15:01 Oxygen By Nasal RT 06/07/24 Verified Cannula 15:01 Erythrocyte LAB 06/07/24 Verified Sedimentation Rate 15:01 C-Reactive Protein LAB 06/08/24 Verified 04:00 Aspirin Enteric PHA 06/08/24 Verified Coated Tablet 10:00 Thyroid Stimulating LAB 06/07/24 Verified Hormone 15:01 Tamsulosin PHA 06/07/24 Verified Hydrochloride (Flomax) 18:00 Date of Service: Jun 07, 2024 Billing Provider: MELISSA BRAVO NP Common Visit Codes: [id number] INP/OBS CARE (HIGH) MELISSA BRAVO NP Jun 07, 2024 15:16
[2024-06-07 15:53] LABS: Hematocrit 47.9 % (41.0-53.0); Hemoglobin 16.4 g/dL (13.5-17.5); Mean Corpuscular Hemoglobin 30.1 pg (28.0-32.0); Mean Corpuscular Hgb Conc. 34.4 g/dL (32.0-36.0); Mean Corpuscular Volume 87.7 fL (80.0-100.0); Platelet Count (auto) 444 10^3/uL (140-450); Red Blood Cells 5.46 10^6/uL (4.5-5.90); Red Cell Distribution Width 14.2 % (11.8-14.3); White Blood Cell 13.3 10^3/uL (4.4-10.8)
[2024-06-07 16:02] LABS: Basophils % (manual) 0 (0.0-2.0); Blast Cells 0; Eosinophils % (manual) 0 (0-7); Metamyelocytes % 0; Myelocytes % 0; Promyelocytes % 0; Reactive Lymphocytes 0
[2024-06-07 16:08] LABS: Triglycerides 128 mg/dL (< 150)
[2024-06-07 16:09] LABS: LDL Cholesterol 74 mg/dL (< 100)
[2024-06-07 16:10] LABS: Cholesterol 128 mg/dL (< 200); HDL Cholesterol 38 mg/dL (40-59)
[2024-06-07 16:21] LABS: Erythrocyte Sedimentation Rate 12 mm/hr (0-20)
[2024-06-07 16:39] LABS: Band Neutrophils % (manual) 3; Lymphocytes % (manual) 15 (10.0-50.0); Monocytes % (manual) 17 (0-12); Platelet Estimate Adequate
[2024-06-07 18:17] VITALS: BP 135/90; PULSE 88; TEMP 98
[2024-06-07 18:44] VITALS: PULSE 108; RESP 13; O2SAT 98
[2024-06-07] MEDS: LORazepam 0.5 MG TAB PO PRN (19:03)
[2024-06-07 20:00] VITALS: PULSE 93; PULSE 95; RESP 16; O2SAT 94
[2024-06-07] MEDS: TAMSULOSIN HYDROCHLORIDE 0.4 MG CAP PO SCH (20:13)
[2024-06-07] MEDS ORDERED: MONT10TA23 PO (20:46)
[2024-06-07] MEDS ORDERED: OMEP-434 PO (20:46)
[2024-06-07 21:00] VITALS: BP_SYST 149; BP_SYST 158; BP_DIAS 84; BP_DIAS 88; PULSE 95; RESP 16; TEMP 98.3; O2SAT 94
[2024-06-07] MEDS: ATORVASTATIN 20 MG TAB PO SCH (22:00)
[2024-06-07] MEDS: traZODone HCL 50 MG TAB PO SCH (22:00)
[2024-06-08] VITALS (8 sets, daily range): BP systolic 106–140; BP diastolic 56–83; PULSE 71–101; RESP 16–19; TEMP 97.7–98.2; O2SAT 94–98
[2024-06-08 07:27] LABS: Anion Gap 6 (5-15); Calcium 9.6 mg/dL (8.7-10.4); Carbon Dioxide 27 mmol/L (20-31); Chloride 108 mmol/L (98-107); Sodium 141 mmol/L (136-145)
[2024-06-08 07:33] LABS: BUN/Creatinine Ratio 19.2 (10.0-20.0); Blood Urea Nitrogen 19 mg/dL (9-23); Glucose 104 mg/dL (74-106)
[2024-06-08 07:43] LABS: CRP High Sensitivity 1.73 mg/dL (<1.0)
[2024-06-08] MEDS: ASPirin-EC 81 mg tab PO SCH ×2 (08:44→17:07)
[2024-06-08] MEDS: ATORVASTATIN 20 MG TAB PO SCH (12:05)
[2024-06-08] MEDS ORDERED: TAMS0.4C39 PO (12:42)
[2024-06-08] MEDS ORDERED: ASPI1TAB20 PO (12:42)
[2024-06-08] MEDS ORDERED: ATOR40TA52 PO (12:42)
[2024-06-08] MEDS ORDERED: FLUT1AER7 IN (12:42)
[2024-06-08] MEDS ORDERED: LEVO150T10 PO (15:31)
--- NOTE | 2024-06-08 16:52 | DVHINCON2 ---
Date Seen: Jun 08, 2024 Referring Physician MD Elva Reason for Consultation Palpitations History of Present Illness This is a pleasant 78-year-old man who presented to the emergency room via EMS with a chief complaint of chest pain. Describes his chest pain as left-sided, throbbing in nature, radiating to his left arm, constant, and associated with dyspnea on exertion and palpitations. He was medicated with ASA 324 mg p.o. x1 and NTG 0.4 mg SL x1 with mild relief of symptoms. He underwent a 12 lead electrocardiogram revealing a sinus rhythm with an incomplete left bundle branch block and first-degree AV block. Serial troponin levels are negative. Reports undergoing an unremarkable echocardiogram and nonischemic Cardiolite stress test with his primary home staging specialist at [place] in 2022. Denies undergoing cardiac catheterizations in the past. Reports a significant family history for cardiovascular disease including multiple family members from massive myocardial infarctions including mother, father, uncles, and grandparents on both sides. Significant medical history includes hypertension, dyslipidemia, prediabetes, thyroid disease, a silent myocardial infarction diagnosed by primary home staging specialist in 2020, TIA in 2011, benign prostatic hyperplasia remote history of smoking x 10 pack-years, obesity, anxiety, and severe depression. Past Medical History Past medical history reviewed. No other significant than mentioned above. Past Surgical History Past surgical history reviewed. No other significant than mentioned above. Family History: Ischemic heart disease G8 MOTHER G8 FATHER Family History Family history reviewed, see HPI. Social History Denies the use of illicit drugs, alcohol, or tobacco use. Allergies: Coded Allergies: Methysergide (Verified Allergy, Unknown, PSYCH/VISION, 05/14/23) Naproxen (Verified Allergy, Unknown, 05/14/23) Home Meds Reported Medications Levothyroxine Sodium (Levothyroxine Sodium) 150 Mcg Tab, 150 MCG PO QAM for 30 Days 06/08/24 Atorvastatin Calcium (ATORVASTATIN CALCIUM) 40 Mg Tab, 1 TAB PO DAILY, #30 TAB 5 Refills 06/08/24 Aspirin (Aspir-81) 81 Mg Tab, 1 TAB PO DAILY@DINNER, #30 TAB 5 Refills 06/08/24 Fluticasone-Salmeterol (Wixela Inhub 500-50 Mcg/Dose) 1 Aer Aer, 1 AER IN BID, AER 06/08/24 Tamsulosin Hcl (Tamsulosin Hcl) 0.4 Mg Cap, 0.4 MG PO QPM for 30 Days, MG 06/08/24 Montelukast Sodium (Singulair) 10 Mg Tab, 10 MG PO DAILY, TAB 06/07/24 Omeprazole Magnesium (Omeprazole) 20 Mg Tab, 20 MG PO BID, TAB 06/07/24 Discontinued Reported Medications Levothyroxine Sodium (Levothroid) 112 Mcg Tab, 150 MCG PO DAILY@BREAKFAST 02/26/11 Home Meds Home medications reviewed. Current Medications Current Medications Medications (Trade) Dose Ordered Sig/Shruthi Route PRN Reason Start Time Stop Time Status Last Admin Aspirin (Ecotrin Enteric Coated Tablet) 81 mg DAILY PO 06/08/24 10:00 06/08/24 08:50 DC Tamsulosin HCl (Flomax) 0.4 mg QPM PO 06/07/24 18:00 06/08/24 15:05 DC 06/07/24 20:13 Trazodone HCl (Desyrel) 100 mg HS PO 06/07/24 22:00 Atorvastatin Calcium (Lipitor) 40 mg HS PO 06/07/24 22:00 06/08/24 08:50 DC Aspirin (Ecotrin Enteric Coated Tablet) 81 mg QPM@1700 PO 06/08/24 17:00 Atorvastatin Calcium (Lipitor) 40 mg DAILY PO 06/08/24 10:00 06/08/24 12:05 Levothyroxine Sodium (Synthroid Tablet) 150 mcg QAM PO 06/09/24 07:00 06/08/24 15:44 DC Montelukast Sodium (Singulair Tablet) 10 mg HS PO 06/08/24 22:00 Tamsulosin HCl (Flomax) 0.4 mg QPM PO 06/08/24 18:00 Omeprazole (PriLOSEC LIQUID) 20 mg BID PO 06/08/24 22:00 Levothyroxine Sodium (Synthroid Tablet) 150 mcg QAM PO 06/09/24 07:00 Review of Systems Constitutional: No symptom reported Ears, Nose, & Throat: No symptom reported Eyes: No symptom reported Neurological: No symptoms reported Pulmonary/Respiratory: LOPEZ Cardiovascular: Chest pain, palpitations Gastrointestinal: No symptom reported Genitourinary: No symptom reported Musculoskeletal: No symptom reported Skin: No symptom reported Psychiatric: No symptom reported Endocrine: No symptom reported Hemotologic/Lymphatic: No symptom reported Vital Signs Vital Signs Date Time Temp Pulse Resp B/P (MAP) Pulse Ox O2 Delivery O2 Flow Rate FiO2 06/08/24 13:00 98.2 76 19 120/78 (92) 98 98.2 06/08/24 08:00 Nasal Cannula* 2 28 Physical Exam General Appearance: Cooperative. Well developed. Obese. In no acute distress Head Exam: Normal inspection Neck Exam: Normal inspection. Non-tender. Normal alignment Pulmonary/Respiratory: Chest non-tender. Clear bilateral breath sounds Cardiovascular/Chest: Regular rate and rhythm. S1, S2. Sinus rhythm with a associated incomplete LBBB and first-degree AV block. No murmurs. No JVD. Peripheral Pulses: 2+ Radial (R). 2+ Radial (L). 2+ Pedal (R). 2+ Pedal (L) Abdominal Exam: Normal bowel sounds. Soft. Nontender. No hepatospenomegaly. No masses Ankle Exam: Negative ankle edema Lower extremities: Negative lower extremity edema Neuro/Mental Status: A&O x4. Coherent Thoughts/Psych: Normal thought pattern. Appropriate mood and affect. Good judgement and insight Appearance: In no acute distress Skin Exam: Normal inspection. Normal color. Warm. Dry Labs/Diagnostic Data Labs Test 06/08/24 05:39 06/07/24 15:24 06/07/24 13:15 06/07/24 11:15 Range/Units Sodium Level 141 136-145 mmol/L Potassium Level 4.0 3.5-5.1 mmol/L Chloride Level 108 H 98-107 mmol/L Carbon Dioxide Level 27 20-31 mmol/L Anion Gap 6 5-15 Blood Urea Nitrogen 19 9-23 mg/dL Creatinine 0.99 0.700-1.30 mg/dL Glomerular Filtration Rate Calc 79 >90 mL/min BUN/Creatinine Ratio 19.2 10.0-20.0 Serum Glucose 104 74-106 mg/dL Calcium Level 9.6 8.7-10.4 mg/dL C-Reactive Protein High Sensitivity 1.73 H <1.0 mg/dL White Blood Count 13.3 H 4.4-10.8 10^3/uL Red Blood Count 5.46 4.5-5.90 10^6/uL Hemoglobin 16.4 13.5-17.5 g/dL Hematocrit 47.9 41.0-53.0 % Mean Corpuscular Volume 87.7 80.0-100.0 fL Mean Corpuscular Hemoglobin 30.1 28.0-32.0 pg Mean Corpuscular Hemoglobin Concent 34.4 32.0-36.0 g/dL Red Cell Distribution Width 14.2 11.8-14.3 % Platelet Count 444 140-450 10^3/uL Mean Platelet Volume 8.0 6.9-10.8 fL Neutrophils (%) (Auto) 37.0-80.0 % Lymphocytes (%) (Auto) 10.0-50.0 % Monocytes (%) (Auto) 0.0-12.0 % Basophils (%) (Auto) 0.0-2.0 % Neutrophils # (Auto) 1.6-8.6 10 ^3/uL Lymphocytes # (Auto) 0.4-5.4 10 ^3/uL Monocytes # (Auto) 0-1.3 10 ^3/uL Differential Total Cells Counted 100.0 100 Neutrophils % (Manual) 65 37.0-80.0 Band Neutrophils % (Manual) 3 Lymphocytes % (Manual) 15 10.0-50.0 Monocytes % (Manual) 17 H 0-12 Eosinophils % (Manual) 0 0-7 Basophils % (Manual) 0 0.0-2.0 Metamyelocytes % (manual) 0 Myelocytes % (Manual) 0 Promyelocytes % (Manual) 0 Blast Cells % (Manual) 0 Reactive Lymphocytes 0 Platelet Estimate Adequate Troponin I High Sensitivity 10 </=54 ng/L Lactic Acid Level 1.5 0.4-2.0 mmol/L Eosinophils (%) (Auto) 1.0 0.0-7.0 % Eosinophils # (Auto) 0.1 0-0.8 10 ^3/uL Basophils # (Auto) 0.1 0-0.2 10 ^3/uL Nucleated Red Blood Cells 0.1 % Erythrocyte Sedimentation Rate 12 0-20 mm/hr B-Type Natriuretic Peptide 70.42 0-100 pg/mL Triglycerides Level 128 < 150 mg/dL Cholesterol Level 128 < 200 mg/dL LDL Cholesterol 74 < 100 mg/dL HDL Cholesterol 38 L 40-59 mg/dL Thyroid Stimulating Hormone (TSH) 1.27 0.55-4.78 uIU/mL Test 06/07/24 11:10 Range/Units Urine Color Light-yellow Yellow Urine Clarity Clear Clear Urine pH 6.0 5.0-9.0 Urine Specific [place] 1.005 1.001-1.035 Urine Protein Negative Negative Urine Ketones Negative Negative Urine Blood Negative Negative /uL Urine Nitrite Negative Negative Urine Bilirubin Negative Negative Urine Urobilinogen Normal Negative mg/dL Urine Leukocyte Esterase Negative Negative /uL Urine RBC 1 0 - 3 /hpf Urine WBC <1 0 - 3 /hpf Urine Squamous Epithelial Cells None seen <5 /hpf Urine Bacteria None seen None Seen /hpf Urine Glucose Normal Normal mg/dL Microbiology Date/Time Source Procedure Growth Status 06/07/24 11:15 Blood Blood Culture - Preliminary NO GROWTH AFTER 24 HOURS OF INCUBATION. Resulted Assessment Chest pain rule out coronary artery disease Palpitations rule out tachyarrhythmias Rule out structural heart disease Hypertension Dyslipidemia Prediabetes Thyroid disease Remote history of smoking Anxiety/depression Obesity Plan/Recommendation (Dr. Toro) The patient with chest pain and palpitations presented with multiple risk factors, pertinent family history for cardiovascular disease, an abnormal 12 lead electrocardiogram, and a high heart score placing him at high-risk for major cardiac events for which he will undergo a cardiac catheterization and coronary angiogram on 06/10/2024. All risks and benefits of the procedure were discussed in detail and agrees to proceed with intervention. In the meantime, continue transthoracic echocardiogram to rule out structural heart disease. Continue single-antiplatelet therapy and lipid lowering agent. Initiate beta- elham and uptitrate as necessary. Monitor ECG changes and notify. Mg and HgbA1C levels pending. Thank you for allowing us to participate in this patient's care. Please call if you have any questions or concerns. This medical document was created using an electronic medical record system with voice recognition software and computerized dictation system. Although this document has been carefully reviewed, there might still be some phonetic and typographical errors. Occasional wrong-word or ``sound-alike substitutions may have occurred due to the inherent limitations of voice recognition software. These areas are purely typographical due to imperfections of the software programs and do not reflect any compromise in the patient's medical care. Please read the chart carefully and recognize, using context, where these substitutions have occurred. Plan discussed with: Patient, Other Date of Service: Jun 08, 2024 Billing Provider: LORENA TORO MD Cardiology Common Codes: [id number] INP/OBS CARE (High) LILLIE QUIROZ [facility] Jun 08, 2024 16:52
--- NOTE | 2024-06-08 16:54 | DVHPN2 ---
Subjective Overnight events noted. Patient has stated that he has does have anxiety disorder was on Prozac and he tapered himself off. Still complaining of jittery and palpitations and neck pain. Reviewed: Care Plan Changes from previous H/P or p: No Changes Eyes: No Pain, No Vision change, No Conjunctivae inflammation, No Eyelid inflammation, No Other, No Redness ENT: No Ear pain, No Ear discharge, No Nose pain, No Nose discharge, No Nose congestion, No Mouth pain, No Mouth swelling, No Throat pain, No Throat swelling, No Other Cardiovascular: Chest Pain, Palpitations Respiratory: No Cough, No Dry, No Shortness of breath, No SOB with excertion, No Wheezing, No Hemoptysis, No Pleuritic Pain, No Sputum, No Other Gastrointestinal: No Nausea, No Vomiting, No Abdominal Pain, No Diarrhea, No Constipation, No Melena, No Hematochezia, No Other Genitourinary: No Dysuria, No Frequency, No Incontinence, No Hematuria, No Retention, No Other Musculoskeletal: No other, No neck pain, No shoulder pain, No arm pain, No back pain, No hand pain, No leg pain, No foot pain Skin: No Rash, No Lesions, No Jaundice, No Bruising, No Other Objective Vitals Vital Signs Date Time Temp Pulse Resp B/P (MAP) Pulse Ox O2 Delivery O2 Flow Rate FiO2 06/08/24 13:00 98.2 76 19 120/78 (92) 98 98.2 06/08/24 08:00 Nasal Cannula* 2 28 Intake/Output Intake and Output 06/08/24 07:00 Intake Total 600 ml Output Total 500 ml Balance 100 ml Intake Oral 600 ml Output Urine Total 500 ml Exam HEENT pupils are reactive Neck is supple CV is S1-S2 regular rate and rhythm Respiratory diminished breath sounds bases GI positive bowel sound Extremity no edema [employer] no motor deficit Medications Current Medications Medications Dose Ordered Sig/Shruthi Route Start Time Stop Time Status Last Admin Dose Admin Nitroglycerin 0.4 mg Q5MINP PRN SL 06/07/24 15:15 Morphine Sulfate 2 mg Q30M PRN IV 06/07/24 15:15 Morphine Sulfate 1 mg Q4HPRN PRN IV 06/07/24 15:15 Acetaminophen/ Hydrocodone Bitart 1 tab Q6HPRN PRN PO 06/07/24 15:15 Acetaminophen 500 mg Q8HP PRN PO 06/07/24 15:15 Ondansetron HCl 4 mg Q6HP PRN IV 06/07/24 15:15 Lorazepam 0.5 mg Q8HP PRN PO 06/07/24 15:15 06/08/24 08:42 0.5 MG Trazodone HCl 100 mg HS PO 06/07/24 22:00 Aspirin 81 mg QPM@1700 PO 06/08/24 17:00 Atorvastatin Calcium 40 mg DAILY PO 06/08/24 10:00 06/08/24 12:05 40 MG Montelukast Sodium 10 mg HS PO 06/08/24 22:00 Tamsulosin HCl 0.4 mg QPM PO 06/08/24 18:00 Omeprazole 20 mg BID PO 06/08/24 22:00 Levothyroxine Sodium 150 mcg QAM PO 06/09/24 07:00 Laboratory Results Laboratory Tests 06/07/24 15:24 06/08/24 05:39 Chemistry Test 06/08/24 05:39 Calcium Level 9.6 mg/dL (8.7-10.4) Urinalysis Test 06/07/24 11:10 Urine Color Light-yellow (Yellow) Urine Clarity Clear (Clear) Urine pH 6.0 (5.0-9.0) Urine Specific [place] 1.005 (1.001-1.035) Urine Protein Negative (Negative) Urine Ketones Negative (Negative) Urine Blood Negative /uL (Negative) Urine Nitrite Negative (Negative) Urine Bilirubin Negative (Negative) Urine Urobilinogen Normal mg/dL (Negative) Urine Leukocyte Esterase Negative /uL (Negative) Urine RBC 1 /hpf (0 - 3) Urine WBC <1 /hpf (0 - 3) Urine Squamous Epithelial Cells None seen /hpf (<5) Urine Bacteria None seen /hpf (None Seen) Urine Glucose Normal mg/dL (Normal) Microbiology Microbiology Date/Time Source Procedure Growth Status 06/07/24 11:15 Blood Blood Culture - Preliminary NO GROWTH AFTER 24 HOURS OF INCUBATION. Resulted Assessment/Plan Assessment/Plan 78-year-old male with a known history of anxiety disorder was on SSRI currently tapered himself off by himself by [facility](Prozac), hypothyroidism, dyslipidemia, BPH presented to the hospital with a palpitation found to have 1. Palpitation with cardiac arrhythmia 2. Anxiety disorder 3. Hypothyroidism 4. Dyslipidemia 5. BPH -close tele monitoring, 2D echo cardiology consultation -check free T4, free T3 Plan discussed with: Patient My Orders Orders - RICK TORRES MD Procedure Category Date Status Time Carotid Duplx W Color US 06/08/24 Logged DOP 14:55 * Cardiology Consult CONS 06/08/24 Transmitted 15:01 Levothyroxine Tablet PHA 06/09/24 In Process (Synthroid Tablet) 07:00 Free T3 LAB 06/08/24 Transmitted 16:51 Free T4 (Free LAB 06/08/24 Transmitted Thyroxine) 16:51 Date of Service: Jun 08, 2024 Billing Provider: RICK TORRES MD Common Visit Codes: [id number] INP/OBS CARE(HIGH) RICK TORRES MD Jun 08, 2024 16:54
[2024-06-08] MEDS: TAMSULOSIN HYDROCHLORIDE 0.4 MG CAP PO SCH (17:06)
[2024-06-08] MEDS: METOPROLOL SUCCINATE XL 50 MG TAB PO ONE (17:07)
--- NOTE | 2024-06-08 17:34 | DVH ---
Carotid Duplex Clinical History: check for blockages Comparison: None Technique: Duplex Doppler evaluation of the extracranial carotid and vertebral arteries including color Doppler and spectral/pulsed waveform analysis was performed. Findings: RIGHT SIDE: The peak systolic velocities are 52 cm/s in the CCA, 79 cm/s in the ICA. The ICA/CCA ratio is 1.5. The external carotid artery is patent with peak systolic velocity of 77 cm/s proximally. There is appropriate antegrade flow in the right vertebral artery. LEFT SIDE: The peak systolic velocities are 65 cm/s in the CCA, 85 cm/s in the ICA. The ICA/CCA ratio is 1.3. The external carotid artery is patent with peak systolic velocity of 75 cm/s proximally. There is appropriate antegrade flow in the left vertebral artery. IMPRESSION: 1. No hemodynamically significant stenosis noted in the right carotid system. 2. No hemodynamically significant stenosis noted in the left carotid system. Reference: Radiology 2003; 229:340-346 Normal ICA PSV is <125 cm/sec and no plaque or intimal thickening is visible sonographically additional criteria include ICA/CCA PSV ratio <2.0 and ICA EDV <40 cm/sec <50% ICA stenosis ICA PSV is <125 cm/sec and plaque or intimal thickening is visible sonographically additional criteria include ICA/CCA PSV ratio <2.0 and ICA EDV <40 cm/sec 50-69% ICA stenosis ICA PSV is 125-230 cm/sec and plaque is visible sonographically additional criteria include ICA/CCA PSV ratio of 2.0-4.0 and ICA EDV of 40-100 cm/sec 70% ICA stenosis but less than near occlusion ICA PSV is >230 cm/sec and visible plaque and luminal narrowing are seen at stephens-scale and color Dopp ler ultrasound (the higher the Doppler parameters lie above the threshold of 230 cm/sec, the greater the likelihood of severe disease) additional criteria include ICA/CCA PSV ratio >4 and ICA EDV >100 cm/sec
[2024-06-08] MEDS: MONTELUKAST SODIUM 10 MG TAB PO SCH (21:20)
[2024-06-08] MEDS: PANTOPRAZOLE 40 MG TAB PO SCH (21:20)
[2024-06-08] MEDS ORDERED: OMEPRAZOLE 20MG/10ML ORAL SUSP PO SCH (22:00)
[2024-06-09] VITALS (8 sets, daily range): BP systolic 109–126; BP diastolic 56–73; PULSE 62–94; RESP 18–20; TEMP 98–98.3; O2SAT 94–96
[2024-06-09] MEDS ORDERED: LEVOTHYROXINE SODIUM 50 MCG TAB PO SCH (07:00)
[2024-06-09] MEDS: LEVOTHYROXINE SODIUM 50 MCG TAB PO SCH (07:54)
[2024-06-09] MEDS: METOPROLOL SUCCINATE XL 50 MG TAB PO SCH (08:02)
[2024-06-09] MEDS: ENOXAPARIN SOD 40 MG/0.4 ML SYRINGE SC SCH (08:04)
--- NOTE | 2024-06-09 11:43 | DVHSR ---
APPROVED REPORT EXAM: Two-dimensional and M-mode echocardiogram with Doppler and color Doppler. Blood Pressure: 121/56 mmHg INDICATION Palpitations RISK FACTORS Height: 5' 9", Weight: 207 DIMENSIONS LVDd4.9 (3.8-5.7cm)LA (2D)3.4 (1.9-4.0cm)Aortic Root4.1 (2.0-3.7cm) LVDs3.9 (2.5-4.0cm)LA (MM) (1.9-4.0cm)Aortic Cusp Exc2.0 (1.5-2.0cm) EF (%) 45.0 (55-70%)Rt. Atrium (1.9-4.0cm)Asc. Aorta cm IVSd1.6 (0.7-1.1cm)RV (D) (1.8-2.4cm) PWd1.6 (0.7-1.1cm) Mitral Valve MitralMitral Stenosis E wave1.20m/sMV Mean GR.mmHg E/A ratio0.02D MVAcm2 Aortic Valve Aortic ValveAortic Stenosis V10.80m/Joni Mean GR.3mmHg V21.10m/Joni Peak GR.5mmHg LVOT Diameter2.4 (1.8-2.4cm)Doppler AVA3.29cm2 Pulmonic Valve V20.60m/s Conclusion Moderately reduced left ventricular systolic function estimated ejection fraction of 35-40% in a glob al fashion. There is a grade 1 diastolic dysfunction. Normal right ventricular size and dimension. Moderately reduced left ventricular systolic function. Borderline dilated right and left atria. Aortic valve appears normal structure and function. The mitral valve appears normal structure and function. Tricuspid valve is normal in structure and function. The pulmonary valve is grossly normal. There is a small circumferential pericardial effusion.
--- NOTE | 2024-06-09 12:53 | DVHPN2 ---
Consult Progress Note Date Seen: Jun 09, 2024 Subjective Review of Systems: CVS:Normal, RESPIRATORY:Normal, NEURO:Normal Objective vital signs Vital Sign Date Time Temp Pulse Resp B/P (MAP) Pulse Ox O2 Delivery O2 Flow Rate FiO2 06/09/24 12:34 98.1 66 20 109/65 (80) 96 98.1 06/09/24 08:24 Room Air* 0 21 Total Intake and Output 06/08/24 06/08/24 06/09/24 15:00 23:00 07:00 Intake Total 120 ml 770 ml 450 ml Output Total 550 ml 400 ml Balance 120 ml 220 ml 50 ml medications Current Medications Medications Dose Ordered Sig/Shruthi Route Start Time Stop Time Status Last Admin Dose Admin Nitroglycerin 0.4 mg Q5MINP PRN SL 06/07/24 15:15 Morphine Sulfate 2 mg Q30M PRN IV 06/07/24 15:15 Morphine Sulfate 1 mg Q4HPRN PRN IV 06/07/24 15:15 Acetaminophen/ Hydrocodone Bitart 1 tab Q6HPRN PRN PO 06/07/24 15:15 Acetaminophen 500 mg Q8HP PRN PO 06/07/24 15:15 Ondansetron HCl 4 mg Q6HP PRN IV 06/07/24 15:15 Lorazepam 0.5 mg Q8HP PRN PO 06/07/24 15:15 06/08/24 18:25 0.5 MG Trazodone HCl 100 mg HS PO 06/07/24 22:00 06/08/24 23:40 100 MG Aspirin 81 mg QPM@1700 PO 06/08/24 17:00 06/08/24 17:07 81 MG Atorvastatin Calcium 40 mg DAILY PO 06/08/24 10:00 06/09/24 08:03 40 MG Montelukast Sodium 10 mg HS PO 06/08/24 22:00 06/08/24 21:20 10 MG Tamsulosin HCl 0.4 mg QPM PO 06/08/24 18:00 06/08/24 17:06 0.4 MG Levothyroxine Sodium 150 mcg QAM PO 06/09/24 07:00 06/09/24 07:54 150 MCG Metoprolol Succinate 25 mg DAILY PO 06/09/24 10:00 06/09/24 08:02 25 MG Enoxaparin Sodium 40 mg DAILY SC 06/09/24 10:00 06/09/24 08:04 40 MG Pantoprazole Sodium 40 mg BID PO 06/08/24 22:00 06/09/24 08:03 40 MG Examination: LUNGS:Normal, CVS:Normal, NEURO:Normal laboratory and microbiology Laboratory Tests 06/08/24 05:39 06/07/24 15:24 Test 06/08/24 05:39 Range/Units Serum Glucose 104 74-106 mg/dL Problem List/Assessment/Plan Problem List/Assessment/Plan Chest pain rule out coronary artery disease Palpitations rule out tachyarrhythmias Chronic compensated HFrEF, newly diagnosed Circumferential pericardial effusion, small Hypertension Dyslipidemia Prediabetes Thyroid disease Remote history of smoking Anxiety/depression Obesity Plan/Recommendation (Dr. Eaton) The patient with chest pain and palpitations presents with multiple risk factors, pertinent family history for cardiovascular disease, an abnormal 12 lead electrocardiogram, and a high heart score placing him at high-risk for major cardiac events for which he will undergo a cardiac catheterization and coronary angiogram on 06/10/2024. Echocardiogram revealed EF 35-40% in a global fashion with borderline dilated right and left atria in addition to a small circumferential pericardial effusion. Continue single-antiplatelet therapy and lipid lowering agent. Initiate GDMT for CHF and uptitrate as necessary. Monitor ECG changes and notify. DVT/VTE prophylaxis. Thank you for allowing us to participate in this patient's care. Please call if you have any questions or concerns. This medical document was created using an electronic medical record system with voice recognition software and computerized dictation system. Although this document has been carefully reviewed, there might still be some phonetic and typographical errors. Occasional wrong-word or ``sound-alike substitutions may have occurred due to the inherent limitations of voice recognition software. These areas are purely typographical due to imperfections of the software programs and do not reflect any compromise in the patient's medical care. Please read the chart carefully and recognize, using context, where these substitutions have occurred. Plan discussed with: Patient, Other Date of Service: Jun 09, 2024 Billing Provider: LORENA EATON MD Cardiology Common Codes: [id number] INP/OBS CARE(Mod) LILLIE QUIROZ [employer] Jun 09, 2024 12:53
[2024-06-09 15:26] LABS: INR 1.14 (0.9-1.15); Partial Thromboplastin Time 29.5 SEC (24.5-34.5)
--- NOTE | 2024-06-09 15:55 | DVHPN2 ---
Subjective Overnight events noted. Patient has stated that he has does have anxiety disorder was on Prozac and he tapered himself off. Still complaining of jittery and palpitations and neck pain. Reviewed: Care Plan Changes from previous H/P or p: No Changes Eyes: No Pain, No Vision change, No Conjunctivae inflammation, No Eyelid inflammation, No Other, No Redness ENT: No Ear pain, No Ear discharge, No Nose pain, No Nose discharge, No Nose congestion, No Mouth pain, No Mouth swelling, No Throat pain, No Throat swelling, No Other Cardiovascular: Chest Pain, Palpitations Respiratory: No Cough, No Dry, No Shortness of breath, No SOB with excertion, No Wheezing, No Hemoptysis, No Pleuritic Pain, No Sputum, No Other Gastrointestinal: No Nausea, No Vomiting, No Abdominal Pain, No Diarrhea, No Constipation, No Melena, No Hematochezia, No Other Genitourinary: No Dysuria, No Frequency, No Incontinence, No Hematuria, No Retention, No Other Musculoskeletal: No other, No neck pain, No shoulder pain, No arm pain, No back pain, No hand pain, No leg pain, No foot pain Skin: No Rash, No Lesions, No Jaundice, No Bruising, No Other Objective Vitals Vital Signs Date Time Temp Pulse Resp B/P (MAP) Pulse Ox O2 Delivery O2 Flow Rate FiO2 06/09/24 12:34 98.1 66 20 109/65 (80) 96 98.1 06/09/24 08:24 Room Air* 0 21 Intake/Output Intake and Output 06/09/24 07:00 Intake Total 1340 ml Output Total 950 ml Balance 390 ml Intake Oral 1340 ml Output Urine Total 950 ml # Voids 1 # Bowel Movements 2 Exam HEENT pupils are reactive Neck is supple CV is S1-S2 regular rate and rhythm Respiratory diminished breath sounds bases GI positive bowel sound Extremity no edema [employer] no motor deficit Medications Current Medications Medications Dose Ordered Sig/Shruthi Route Start Time Stop Time Status Last Admin Dose Admin Nitroglycerin 0.4 mg Q5MINP PRN SL 06/07/24 15:15 Morphine Sulfate 2 mg Q30M PRN IV 06/07/24 15:15 Morphine Sulfate 1 mg Q4HPRN PRN IV 06/07/24 15:15 Acetaminophen/ Hydrocodone Bitart 1 tab Q6HPRN PRN PO 06/07/24 15:15 Acetaminophen 500 mg Q8HP PRN PO 06/07/24 15:15 Ondansetron HCl 4 mg Q6HP PRN IV 06/07/24 15:15 Lorazepam 0.5 mg Q8HP PRN PO 06/07/24 15:15 06/09/24 13:34 0.5 MG Trazodone HCl 100 mg HS PO 06/07/24 22:00 06/08/24 23:40 100 MG Aspirin 81 mg QPM@1700 PO 06/08/24 17:00 06/08/24 17:07 81 MG Atorvastatin Calcium 40 mg DAILY PO 06/08/24 10:00 06/09/24 08:03 40 MG Montelukast Sodium 10 mg HS PO 06/08/24 22:00 06/08/24 21:20 10 MG Tamsulosin HCl 0.4 mg QPM PO 06/08/24 18:00 06/08/24 17:06 0.4 MG Levothyroxine Sodium 150 mcg QAM PO 06/09/24 07:00 06/09/24 07:54 150 MCG Enoxaparin Sodium 40 mg DAILY SC 06/09/24 10:00 06/09/24 08:04 40 MG Pantoprazole Sodium 40 mg BID PO 06/08/24 22:00 06/09/24 08:03 40 MG Sacubitril/ Valsartan 0.5 tab BID PO 06/09/24 22:00 Empaglifozin 10 mg DAILY PO 06/10/24 10:00 Spironolactone 12.5 mg DAILY PO 06/10/24 10:00 Carvedilol 3.125 mg Q12HR PO 06/09/24 22:00 Furosemide 20 mg DAILY PO 06/10/24 10:00 Laboratory Results Laboratory Tests 06/07/24 15:24 06/08/24 05:39 Coagulation Test 06/09/24 14:36 Prothrombin Time 12.0 sec (9.3-11.8) H Prothrombin Time INR 1.14 (0.9-1.15) Activated Partial Thromboplast Time 29.5 SEC (24.5-34.5) Urinalysis Test 06/07/24 11:10 Urine Color Light-yellow (Yellow) Urine Clarity Clear (Clear) Urine pH 6.0 (5.0-9.0) Urine Specific [place] 1.005 (1.001-1.035) Urine Protein Negative (Negative) Urine Ketones Negative (Negative) Urine Blood Negative /uL (Negative) Urine Nitrite Negative (Negative) Urine Bilirubin Negative (Negative) Urine Urobilinogen Normal mg/dL (Negative) Urine Leukocyte Esterase Negative /uL (Negative) Urine RBC 1 /hpf (0 - 3) Urine WBC <1 /hpf (0 - 3) Urine Squamous Epithelial Cells None seen /hpf (<5) Urine Bacteria None seen /hpf (None Seen) Urine Glucose Normal mg/dL (Normal) Microbiology Microbiology Date/Time Source Procedure Growth Status 06/07/24 11:15 Blood Blood Culture - Preliminary NO GROWTH AFTER 48 HOURS OF INCUBATION. Resulted Assessment/Plan Assessment/Plan 78-year-old male with a known history of anxiety disorder was on SSRI currently tapered himself off by himself by [facility] medicine(Prozac), hypothyroidism, dyslipidemia, BPH presented to the hospital with a palpitation found to have 1. Palpitation with cardiac arrhythmia 2. Anxiety disorder 3. Hypothyroidism 4. Dyslipidemia 5. BPH -close tele monitoring, 2D echo cardiology consultation -patient has been scheduled for left heart catheterization on06/10 Plan discussed with: Patient My Orders Orders - RICK TORRES MD Procedure Category Date Status Time Free T3 LAB 06/08/24 In Process 16:51 Free T4 (Free LAB 06/08/24 In Process Thyroxine) 16:51 Date of Service: Jun 09, 2024 Billing Provider: RICK TORRES MD Common Visit Codes: [id number] INP/OBS CARE(MOD) RICK TORRES MD Jun 09, 2024 15:55
[2024-06-09] MEDS: CARVEDILOL 3.125 MG TAB PO SCH (22:15)
[2024-06-09] MEDS: SACUBITRIL-VALSARTAN 24mg/26mg TAB PO SCH (22:19)
[2024-06-10] VITALS (11 sets, daily range): BP systolic 102–147; BP diastolic 57–76; PULSE 53–72; RESP 14–19; TEMP 97.6–98.3; O2SAT 92–97
[2024-06-10 06:19] LABS: Hematocrit 42.9 % (41.0-53.0); Hemoglobin 14.5 g/dL (13.5-17.5); Mean Corpuscular Hgb Conc. 33.7 g/dL (32.0-36.0); Mean Corpuscular Volume 89.1 fL (80.0-100.0); Platelet Count (auto) 284 10^3/uL (140-450); Red Blood Cells 4.81 10^6/uL (4.5-5.90); Red Cell Distribution Width 14.1 % (11.8-14.3); White Blood Cell 8.4 10^3/uL (4.4-10.8)
[2024-06-10 06:27] LABS: Basophils % (manual) 0 (0.0-2.0); Blast Cells 0; Metamyelocytes % 0; Myelocytes % 0; Promyelocytes % 0; Reactive Lymphocytes 0
[2024-06-10 06:32] LABS: INR 1.11 (0.9-1.15); Partial Thromboplastin Time 27.6 SEC (24.5-34.5); Prothrombin Time 11.7 sec (9.3-11.8)
[2024-06-10 06:33] LABS: Anion Gap 7 (5-15); Carbon Dioxide 24 mmol/L (20-31); Chloride 109 mmol/L (98-107); Potassium 4.1 mmol/L (3.5-5.1); Sodium 140 mmol/L (136-145)
[2024-06-10 06:34] LABS: Calcium 9.1 mg/dL (8.7-10.4)
[2024-06-10 06:39] LABS: BUN/Creatinine Ratio 18.6 (10.0-20.0); Blood Urea Nitrogen 19 mg/dL (9-23); Glucose 110 mg/dL (74-106)
[2024-06-10 07:51] LABS: Band Neutrophils % (manual) 6; Eosinophils % (manual) 4 (0-7); Lymphocytes % (manual) 26 (10.0-50.0); Monocytes % (manual) 4 (0-12)
[2024-06-10 07:52] LABS: Platelet Estimate Adequate
[2024-06-10] MEDS: EMPAGLIFLOZIN 10 MG TAB PO SCH (09:21)
[2024-06-10] MEDS: FUROSEMIDE 20 MG TAB PO SCH (09:21)
[2024-06-10] MEDS: SPIRONOLACTONE 25 MG TAB PO SCH (09:21)
[2024-06-10] MEDS: ANGIOMAX 250 MG VIAL IV ONE (12:27)
[2024-06-10] MEDS: HEPARIN SODIUM (PORCINE) 5000 UNITS/ML 1ML VIAL ONE (12:27)
[2024-06-10] MEDS: fentaNYL CITRATE 100 MCG/2 ML VL ONE (12:27)
[2024-06-10] MEDS: VERAPAMIL 2.5MG/ML INJ 2ML VIAL IV ONE (12:27)
[2024-06-10] MEDS: LIDOCAINE 2%HCL (LOCAL ANESTH.) INJ 20ML MDV ONE (12:28)
[2024-06-10] MEDS: MIDAZOLAM HCL 2MG/2ML 2ml VIAL (1mg/ml) ONE (12:28)
[2024-06-10] MEDS: SODIUM CHL 0.9% 50 ML ONE (12:28)
[2024-06-10 12:38] LABS: Free T3 2.78 pg/mL (2.3-4.2)
[2024-06-10 12:39] LABS: Free T4 (Free Thyroxine) 1.49 ng/dL (0.89-1.76)
[2024-06-10] MEDS: IODIXANOL 320MG/ML 100ML BTL IV ONE (13:12)
[2024-06-10] MEDS: CLOPIDOGREL BISULFATE 75 MG TAB ONE ×3 (13:18→13:20)
--- NOTE | 2024-06-10 13:47 | DVHOP2 ---
Operative Report -Cardiology Report Details Date: 06/10/24 Preop Diagnosis: Typical anginal pain Postop Diagnosis: Patient underwent coronary angiography which revealed critical tight stenosis of the proximal LAD as well as the distal right coronary artery involving the mid PDA. Patient treated with a single drug-eluting stent to the LAD as well another one to the mid PDA. Patient has residual moderate disease for aggressive medical therapy including the proximal LAD the ostium of the 1st obtuse marginal branch. Surgeon: Lily Moore MD Anesthesiologist: Conscious sedation using25 mcg of fentanyl as well as a mg IV midazolam. Patient was monitored for total of 35 minutes under direct supervision of the primary flare man myself as well as the attending nurses. Without obvious complication. Anesthesia: Local Consent: The patient was informed of the risks and benefits of the procedure. These include but are not limited to complications of anesthesia, postoperative infection, incomplete relief of symptoms, recurrence of symptoms, damage to blood vessels, nerves and tendons, deep venous thrombosis, pulmonary embolism and possible need for repeat surgery in the future. Indications for Surgery: This is a pleasant 78-year-old man who presented to the emergency room via EMS with a chief complaint of chest pain. Describes his chest pain as left-sided, throbbing in nature, radiating to his left arm, constant, and associated with dyspnea on exertion and palpitations. He was medicated with ASA 324 mg p.o. x1 and NTG 0.4 mg SL x1 with mild relief of symptoms. He underwent a 12 lead electrocardiogram revealing a sinus rhythm with an incomplete left bundle branch block and first-degree AV block. Serial troponin levels are negative. Reports undergoing an unremarkable echocardiogram and nonischemic Cardiolite stress test with his primary flare man at [facility] in 2022. Denies undergoing cardiac catheterizations in the past. Reports a significant family history for cardiovascular disease including multiple family members from massive myocardial infarctions including mother, father, uncles, and grandparents on both sides. Significant medical history includes hypertension, dyslipidemia, prediabetes, thyroid disease, a silent myocardial infarction diagnosed by primary flare man in 2020, TIA in 2011, benign prostatic hyperplasia remote history of smoking x 10 pack-years, obesity, anxiety, and severe depression. Name of Procedure Performed 1. Left heart catheterization with left ventricular end-diastolic pressure measurement. 2. Selective right and left coronary angiography utilizing right transradial approach. 3. Primary PCI to prox LAD stenosis using single drug-eluting stent. 4. Staged PCI to mid posterior descending artery using single drug-eluting stent in the same set up. 5. Conscious sedation using25 mcg of fentanyl as well as a mg IV midazolam. Procedure Details Procedure Details: Procedure note: After informed consent was obtained, risks, benefits, complications, and alternatives were discussed in details with the patient who agrees to have the procedure done. At the beginning of the procedure, the right wrist in the right groin area were prepped and draped in the regular sterile fashion. Patient received conscious sedation with25 mcg of fentanyl as well as a mg IV midazolam. After local anesthesia was applied to the right wrist area a six Gabonese sheath was advanced using modified Seldinger technique over the wire without difficulty. Patient then received cocktail of 2.5 mg of verapamil as well as 100 mcg of nitroglycerin to prevent vasospasm. A tiger five Gabonese catheter as well as a J-tip wire were used for diagnostic catheterization. Then an XB 3.5 as well as Karen four guiding catheter was used for the left and right coronary angioplasty to both system respectively. 1. Left heart catheterization with left ventricular end-diastolic pressure measurement: With the help of a tiger five Gabonese catheter as well as a J-tip wire we were able to cross the aortic valve and measured left ventricular end-diastolic pressure which was normal at 9 mm of mercury. No gradient across the aortic valve were identified on the pullback. 2. Selective right and left coronary angiography utilizing right transradial approach: 1. The right coronary artery comes off the right coronary cusp, it is a large dominant system it provides basal right posterior descending artery and medium to large posterolateral branch. Of the midportion of the posterior descending artery there is tubular 80% stenosis. 2. The left main comes off the left coronary cusp it is a large widely patent without significant atherosclerotic plaquing it bifurcates into a large left anterior descending artery, ramus intermedius, and left circumflex system. 3. The left anterior descending artery gives rise to three diagonal branches after the 2nd small diagonal branch takeoff there is tight 90% stenosis, prior to the stenosis there is another lesion at 40-50%. Of the distal part of the LAD there is mild irregularity without significant stenosis. 4. The ramus intermedius has ostial 50-60% stenosis. 5. The left circumflex artery is medium-sized vessel that gives rise to multiple obtuse marginal branches, it has mild irregularity but no discrete stenosis was noted. 3. Successful percutaneous coronary intervention with stent placement to the proximal to mid LAD stenosis using single drug-eluting stent: The tiger five Gabonese catheter was exchanged for an XB 3.5 guiding catheter, a C-arm blue wire was used to traverse the lesion lesion was then pre-dilated using two5 x 15 balloon and then stented using three 0 by22 drug-eluting stent with excellent final result. 4. Successful percutaneous coronary intervention with stent placement to the mid posterior descending artery tubular stenosis: The XB guiding catheter was exchanged for a Karen right guiding catheter, this lesion was pre-dilated using two five by15 after it was traversed using the same wire was used before, then it was stented using 2.5 by18 drug-eluting stent with excellent final result. Antiplatelet anticoagulation during the procedure: Patient received a total of 600 Plavix, addition to 162 mg of aspirin, continuous intravenous bivalirudin infusion was ensued during the procedure. Impression and plan: 1. Patient has acute coronary artery syndrome likely due to prox LAD culprit lesion which was fixed with single drug-eluting stent. 2. Patient underwent successful staged procedure of the mid posterior descending artery stenosis using single drug-eluting stent. 3. Patient had moderate nonobstructive disease involving the ramus intermedius, the prox LAD, as well as proximal left circumflex system for medical therapy. 4. Patient would need aggressive medical therapy with dual antiplatelet therapy for minimum of12 months and thereafter single antiplatelet therapy indefinitely, we will need high-dose statin to achieve LDL target less than 50 mg/dL. 5. Given the patient has [id number] reduced left ventricular systolic function, he would need to be placed on goal-directed medical therapy to improve his ejection fraction. 6. I have discussed with the patient the findings of the intervention that were done I have highlighted the importance of being compliant to medications including dual antiplatelet therapy and high-dose statins. We will need a regular follow-up in the cardiology clinic. Condition Good CSHA Clinical Frailty Scale CSHA Clinical Frailty Scale: Mildly Frail Dominance Dominance: Right VIDHYA VIDHYA Flow: Post- Intervention (VIDHYA-3), Pre-Intervention (VIDHYA-2) Lesion Residual Stenosis post procedu: 0% Disposition LILY MOORE MD Jun 10, 2024 13:47
--- NOTE | 2024-06-10 14:39 | DVHPN2 ---
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 He rated the pain a 3/10. Reviewed: Care Plan, H&P Changes from previous H/P or p: No Changes General: Per HPI Eyes: No Pain, No Vision change, No Conjunctivae inflammation, No Eyelid inflammation, No Other, No Redness ENT: No Ear pain, No Ear discharge, No Nose pain, No Nose discharge, No Nose congestion, No Mouth pain, No Mouth swelling, No Throat pain, No Throat swelling, No Other Cardiovascular: Chest Pain, Palpitations Respiratory: No Cough, No Dry, No Shortness of breath, No SOB with excertion, No Wheezing, No Hemoptysis, No Pleuritic Pain, No Sputum, No Other Gastrointestinal: No Nausea, No Vomiting, No Abdominal Pain, No Diarrhea, No Constipation, No Melena, No Hematochezia, No Other Genitourinary: No Dysuria, No Frequency, No Incontinence, No Hematuria, No Retention, No Other Musculoskeletal: No other, No neck pain, No shoulder pain, No arm pain, No back pain, No hand pain, No leg pain, No foot pain Skin: No Rash, No Lesions, No Jaundice, No Bruising, No Other Objective Vitals Vital Signs Date Time Temp Pulse Resp B/P (MAP) Pulse Ox O2 Delivery O2 Flow Rate FiO2 06/10/24 14:01 54 14 145/63 (90) 95 06/10/24 09:00 98.2 98.2 06/10/24 08:00 Room Air* 0 21 Intake/Output Intake and Output 06/10/24 07:00 Intake Total 1670 ml Output Total 820 ml Balance 850 ml Intake Oral 1670 ml Output Urine Total 820 ml # Voids 3 # Bowel Movements 1 General Appearance: Alert, Oriented X3, Cooperative, No acute distress HEENT: Atraumatic, PERRLA Lungs: Clear to auscultation, Normal air movement Cardiovascular: Normal S1, Normal S2 Abdomen: Normal bowel sounds, Soft, No tenderness, No hepatospenomegaly, No masses Musculoskeletal: Normal sensory function, Normal motor function Neuro: Normal gait, Normal speech Psych/Mental Status: Mental status NL, Mood NL Medications Current Medications Medications Dose Ordered Sig/Shruthi Route Start Time Stop Time Status Last Admin Dose Admin Nitroglycerin 0.4 mg Q5MINP PRN SL 06/07/24 15:15 Morphine Sulfate 2 mg Q30M PRN IV 06/07/24 15:15 Morphine Sulfate 1 mg Q4HPRN PRN IV 06/07/24 15:15 Acetaminophen/ Hydrocodone Bitart 1 tab Q6HPRN PRN PO 06/07/24 15:15 Acetaminophen 500 mg Q8HP PRN PO 06/07/24 15:15 Ondansetron HCl 4 mg Q6HP PRN IV 06/07/24 15:15 Lorazepam 0.5 mg Q8HP PRN PO 06/07/24 15:15 06/10/24 11:52 0.5 MG Trazodone HCl 100 mg HS PO 06/07/24 22:00 06/09/24 23:59 100 MG Atorvastatin Calcium 40 mg DAILY PO 06/08/24 10:00 06/09/24 08:03 40 MG Montelukast Sodium 10 mg HS PO 06/08/24 22:00 06/09/24 22:14 10 MG Tamsulosin HCl 0.4 mg QPM PO 06/08/24 18:00 06/09/24 17:20 0.4 MG Levothyroxine Sodium 150 mcg QAM PO 06/09/24 07:00 06/09/24 07:54 150 MCG Enoxaparin Sodium 40 mg DAILY SC 06/09/24 10:00 06/09/24 08:04 40 MG Pantoprazole Sodium 40 mg BID PO 06/08/24 22:00 06/09/24 22:14 40 MG Sacubitril/ Valsartan 0.5 tab BID PO 06/09/24 22:00 06/10/24 09:19 0.5 TAB Empaglifozin 10 mg DAILY PO 06/10/24 10:00 Spironolactone 12.5 mg DAILY PO 06/10/24 10:00 Carvedilol 3.125 mg Q12HR PO 06/09/24 22:00 06/10/24 09:20 3.125 MG Furosemide 20 mg DAILY PO 06/10/24 10:00 Clopidogrel Bisulfate 75 mg DAILY PO 06/11/24 10:00 Aspirin 81 mg DAILY PO 06/11/24 10:00 Laboratory Results Laboratory Tests 06/10/24 05:30 Chemistry Test 06/10/24 05:30 Calcium Level 9.1 mg/dL (8.7-10.4) Coagulation Test 06/10/24 05:30 Prothrombin Time 11.7 sec (9.3-11.8) Prothrombin Time INR 1.11 (0.9-1.15) Activated Partial Thromboplast Time 27.6 SEC (24.5-34.5) Urinalysis Test 06/07/24 11:10 Urine Color Light-yellow (Yellow) Urine Clarity Clear (Clear) Urine pH 6.0 (5.0-9.0) Urine Specific [place] 1.005 (1.001-1.035) Urine Protein Negative (Negative) Urine Ketones Negative (Negative) Urine Blood Negative /uL (Negative) Urine Nitrite Negative (Negative) Urine Bilirubin Negative (Negative) Urine Urobilinogen Normal mg/dL (Negative) Urine Leukocyte Esterase Negative /uL (Negative) Urine RBC 1 /hpf (0 - 3) Urine WBC <1 /hpf (0 - 3) Urine Squamous Epithelial Cells None seen /hpf (<5) Urine Bacteria None seen /hpf (None Seen) Urine Glucose Normal mg/dL (Normal) Microbiology Microbiology Date/Time Source Procedure Growth Status 06/07/24 11:15 Blood Blood Culture - Preliminary NO GROWTH AFTER 72 HOURS OF INCUBATION. Resulted Labs and/or images reviewed: Labs reviewed by me, Image(s) reviewed by me Assessment/Plan Assessment/Plan Impression: -palpitations -bifascicular heart block, rule out second-degree type 1 heart block -acute coronary syndrome -obesity -anxiety disorder -leukocytosis -BPH -dyslipidemia -hypothyroidism -acute systolic heart failure with ejection fraction 35% Plan: -events: Giving findings on cardiac catheterization, patient was unstable to transfer to [facility]. Patient received two stents, one to his mid LAD for 90% occlusion as well as once stent to his posterior descending artery for an 80% occlusion. -continue dual antiplatelet therapy -continue statin, beta-elham, Entresto -restart statin -echocardiogram: Reviewed -repeat labs in a.m. -DC planning for tomorrow Total time spent with patient discussing and formulating plan of care: 35 minutes. This medical document was created using an electronic medical record system with [employer] system. Although this document has been carefully reviewed, there may still be some phonetic and typographical errors. These areas are purely typographical due to imperfections of the software programs, and do not reflect any compromise in the patient's medical care. Plan discussed with: Patient, Other (RN) Date of Service: Jun 10, 2024 Billing Provider: MELISSA BRAVO NP Common Visit Codes: [id number] INP/OBS CARE(HIGH) MELISSA BRAVO NP Jun 10, 2024 14:39
[2024-06-11 00:55] VITALS: BP 118/66; PULSE 61; RESP 18; TEMP 98.3; O2SAT 95
[2024-06-11 05:00] VITALS: BP 110/66; PULSE 58; RESP 17; TEMP 98.2; O2SAT 96
[2024-06-11 08:00] VITALS: PULSE 57
[2024-06-11] MEDS: ASPirin 81 mg TAB PO SCH (08:44)
[2024-06-11] MEDS: CLOPIDOGREL BISULFATE 75 MG TAB PO SCH (08:45)
[2024-06-11 09:24] VITALS: BP 140/74; PULSE 65; RESP 18; TEMP 97.9; O2SAT 95
--- NOTE | 2024-06-11 10:48 | DVHPN2 ---
Consult Progress Note Date Seen: Jun 11, 2024 Subjective Review of Systems: CVS:Normal, RESPIRATORY:Normal, NEURO:Normal Other Systems: Denies any further cardiac symptoms. Objective vital signs Vital Sign Date Time Temp Pulse Resp B/P (MAP) Pulse Ox O2 Delivery O2 Flow Rate FiO2 06/11/24 09:24 97.9 65 18 140/74 (96) 95 97.9 06/11/24 08:00 Room Air* 0 21 Total Intake and Output 06/10/24 06/10/24 06/11/24 15:00 23:00 07:00 Intake Total 240 ml 350 ml Output Total 700 ml Balance 240 ml -350 ml medications Current Medications Medications Dose Ordered Sig/Shruthi Route Start Time Stop Time Status Last Admin Dose Admin Nitroglycerin 0.4 mg Q5MINP PRN SL 06/07/24 15:15 Morphine Sulfate 2 mg Q30M PRN IV 06/07/24 15:15 Morphine Sulfate 1 mg Q4HPRN PRN IV 06/07/24 15:15 Acetaminophen/ Hydrocodone Bitart 1 tab Q6HPRN PRN PO 06/07/24 15:15 Acetaminophen 500 mg Q8HP PRN PO 06/07/24 15:15 Ondansetron HCl 4 mg Q6HP PRN IV 06/07/24 15:15 Lorazepam 0.5 mg Q8HP PRN PO 06/07/24 15:15 06/11/24 08:59 0.5 MG Trazodone HCl 100 mg HS PO 06/07/24 22:00 06/10/24 23:55 100 MG Atorvastatin Calcium 40 mg DAILY PO 06/08/24 10:00 06/11/24 08:44 40 MG Montelukast Sodium 10 mg HS PO 06/08/24 22:00 06/10/24 21:18 10 MG Tamsulosin HCl 0.4 mg QPM PO 06/08/24 18:00 06/10/24 17:36 0.4 MG Levothyroxine Sodium 150 mcg QAM PO 06/09/24 07:00 06/11/24 06:04 150 MCG Pantoprazole Sodium 40 mg BID PO 06/08/24 22:00 06/11/24 08:44 40 MG Sacubitril/ Valsartan 0.5 tab BID PO 06/09/24 22:00 06/11/24 08:46 0.5 TAB Empaglifozin 10 mg DAILY PO 06/10/24 10:00 06/11/24 08:44 10 MG Spironolactone 12.5 mg DAILY PO 06/10/24 10:00 06/11/24 08:44 12.5 MG Carvedilol 3.125 mg Q12HR PO 06/09/24 22:00 06/11/24 08:46 3.125 MG Furosemide 20 mg DAILY PO 06/10/24 10:00 06/11/24 08:44 20 MG Clopidogrel Bisulfate 75 mg DAILY PO 06/11/24 10:00 06/11/24 08:45 75 MG Aspirin 81 mg DAILY PO 06/11/24 10:00 06/11/24 08:44 81 MG Examination: LUNGS:Normal, CVS:Normal, NEURO:Normal laboratory and microbiology Laboratory Tests 06/10/24 05:30 Test 06/10/24 05:30 Range/Units Serum Glucose 110 H 74-106 mg/dL Problem List/Assessment/Plan Problem List/Assessment/Plan Coronary artery disease status post PTCA to the proximal LAD and PDA x 2DES Palpitations rule out tachyarrhythmias Chronic compensated HFrEF, newly diagnosed Circumferential pericardial effusion, small Hypertension Dyslipidemia Prediabetes Thyroid disease Remote history of smoking Anxiety/depression Obesity Plan/Recommendation (Dr. Eaton) The patient with chest pain and palpitations underwent a cardiac catheterization and coronary angiogram with successful PCI to the proximal LAD and PDA including 2 ADRIANNA. Echocardiogram revealed EF 35-40% in a global fashion with borderline dilated right and left atria in addition to a small circumferential pericardial effusion. Continue dual-antiplatelet therapy including Plavix uninterrupted for 1 year, beta-elham, and lipid lowering agent. Continue GDMT for CHF and uptitrate as tolerated. Repeat transthoracic echocardiogram within three months of medical therapy to reassess cardiac function. Denies any further palpitations, nevertheless the patient can benefit from an outpatient event monitor if deemed to be necessary. Follow[facility]up with [facility]iology at [facility] within 1-2 weeks post-discharge. There is no further cardiac work-up indicated at this time. Kindly call if in need of further follow-up. Thank you for allowing us to participate in this patient's care. This medical document was created using an electronic medical record system with voice recognition software and computerized dictation system. Although this document has been carefully reviewed, there might still be some phonetic and typographical errors. Occasional wrong-word or ``sound-alike substitutions may have occurred due to the inherent limitations of voice recognition software. These areas are purely typographical due to imperfections of the software programs and do not reflect any compromise in the patient's medical care. Please read the chart carefully and recognize, using context, where these substitutions have occurred. Plan discussed with: Patient, Other Date of Service: Jun 11, 2024 Billing Provider: LORENA EATON MD Cardiology Common Codes: [id number] INP/OBS CARE(Mod) LILLIE QUIROZ [facility] Jun 11, 2024 10:48
[2024-06-11] MEDS ORDERED: CARV-214 PO (12:04)
[2024-06-11] MEDS ORDERED: CLOP75TA70 PO (12:04)
[2024-06-11] MEDS ORDERED: SPIR25TA PO (12:04)
[2024-06-11] MEDS ORDERED: SACU1TAB PO (12:04)
[2024-06-11 12:29] VITALS: BP 126/74; PULSE 70; RESP 19; TEMP 98; O2SAT 94
--- NOTE | 2024-06-11 13:36 | DVHDS2 ---
Discharge Summary Date of Admission Jun 07, 2024 at 15:01 Date of Discharge: Jun 11, 2024 Admitting Diagnosis Palpitations tremors Labs/Diagnostic Data: Laboratory Results Test 06/10/24 05:30 06/08/24 05:39 06/07/24 15:24 06/07/24 13:15 White Blood Count 8.4 10^3/uL (4.4-10.8) Red Blood Count 4.81 10^6/uL (4.5-5.90) Hemoglobin 14.5 g/dL (13.5-17.5) Hematocrit 42.9 % (41.0-53.0) Mean Corpuscular Volume 89.1 fL (80.0-100.0) Mean Corpuscular Hemoglobin 30.0 pg (28.0-32.0) Mean Corpuscular Hemoglobin Concent 33.7 g/dL (32.0-36.0) Red Cell Distribution Width 14.1 % (11.8-14.3) Platelet Count 284 10^3/uL (140-450) Mean Platelet Volume 8.0 fL (6.9-10.8) Neutrophils (%) (Auto) % (37.0-80.0) Lymphocytes (%) (Auto) % (10.0-50.0) Monocytes (%) (Auto) % (0.0-12.0) Basophils (%) (Auto) % (0.0-2.0) Neutrophils # (Auto) 10 ^3/uL (1.6-8.6) Lymphocytes # (Auto) 10 ^3/uL (0.4-5.4) Monocytes # (Auto) 10 ^3/uL (0-1.3) Differential Total Cells Counted 100.0 (100) Neutrophils % (Manual) 60 (37.0-80.0) Band Neutrophils % (Manual) 6 Lymphocytes % (Manual) 26 (10.0-50.0) Monocytes % (Manual) 4 (0-12) Eosinophils % (Manual) 4 (0-7) Basophils % (Manual) 0 (0.0-2.0) Metamyelocytes % (manual) 0 Myelocytes % (Manual) 0 Promyelocytes % (Manual) 0 Blast Cells % (Manual) 0 Reactive Lymphocytes 0 Platelet Estimate Adequate Prothrombin Time 11.7 sec (9.3-11.8) Prothrombin Time INR 1.11 (0.9-1.15) Activated Partial Thromboplast Time 27.6 SEC (24.5-34.5) Sodium Level 140 mmol/L (136-145) Potassium Level 4.1 mmol/L (3.5-5.1) Chloride Level 109 mmol/L (98-107) Carbon Dioxide Level 24 mmol/L (20-31) Anion Gap 7 (5-15) Blood Urea Nitrogen 19 mg/dL (9-23) Creatinine 1.02 mg/dL (0.700-1.30) Glomerular Filtration Rate Calc 76 mL/min (>90) BUN/Creatinine Ratio 18.6 (10.0-20.0) Serum Glucose 110 mg/dL (74-106) Calcium Level 9.1 mg/dL (8.7-10.4) Hemoglobin A1c 5.7 % A1C (<5.7) Magnesium Level 2.3 mg/dL (1.6-2.6) C-Reactive Protein High Sensitivity 1.73 mg/dL (<1.0) Free Thyroxine (T4) Calculated 1.49 ng/dL (0.89-1.76) Free Triiodothyronine (T3) pg/mL 2.78 pg/mL (2.3-4.2) Troponin I High Sensitivity 10 ng/L (</=54) Lactic Acid Level 1.5 mmol/L (0.4-2.0) Test 06/07/24 11:15 06/07/24 11:10 Eosinophils (%) (Auto) 1.0 % (0.0-7.0) Eosinophils # (Auto) 0.1 10 ^3/uL (0-0.8) Basophils # (Auto) 0.1 10 ^3/uL (0-0.2) Nucleated Red Blood Cells 0.1 % Erythrocyte Sedimentation Rate 12 mm/hr (0-20) B-Type Natriuretic Peptide 70.42 pg/mL (0-100) Triglycerides Level 128 mg/dL (< 150) Cholesterol Level 128 mg/dL (< 200) LDL Cholesterol 74 mg/dL (< 100) HDL Cholesterol 38 mg/dL (40-59) Thyroid Stimulating Hormone (TSH) 1.27 uIU/mL (0.55-4.78) Urine Color Light-yellow (Yellow) Urine Clarity Clear (Clear) Urine pH 6.0 (5.0-9.0) Urine Specific [place] 1.005 (1.001-1.035) Urine Protein Negative (Negative) Urine Ketones Negative (Negative) Urine Blood Negative /uL (Negative) Urine Nitrite Negative (Negative) Urine Bilirubin Negative (Negative) Urine Urobilinogen Normal mg/dL (Negative) Urine Leukocyte Esterase Negative /uL (Negative) Urine RBC 1 /hpf (0 - 3) Urine WBC <1 /hpf (0 - 3) Urine Squamous Epithelial Cells None seen /hpf (<5) Urine Bacteria None seen /hpf (None Seen) Urine Glucose Normal mg/dL (Normal) Other Laboratory Tests 06/10/24 05:30 Brief Hx & Hospital Course: History of Present Illness Patient was a 78-year-old male presenting to the emergency room with multiple complaints including palpitations, tremors to his upper extremities, swelling to his hands and feet, as well as reporting finishing an antibiotic course by his primary doctor at [facility] for which she states he was not given a diagnosis. Patient states that he was told his white blood cell count was elevated, and has been having: Flu-like symptoms since the end of March. Twelve lead ECG interpretation reveals first-degree block at as well as left anterior fascicular block. Bedside EKG reveals questionable second-degree type 1 heart block. Significant history of the patient includes severe anxiety disorder, hypertension, dyslipidemia, patient is and BPH. Course of hospitalization: Cardiology consultation was obtained. Patient underwent echocardiogram which revealed depressed ejection fraction of 35%. Patient underwent left heart catheterization yesterday given patient had persistent substernal chest pain. Patient was found to have multiple occlusions to his LAD, requiring two stents. The patient was started on dual antiplatelet therapy. Re-evaluation of the patient today reveals that his chest pain has resolved. He will be continued on goal-directed medical therapy for depressed heart failure including beta elham, RUSSELL inhibitor, statin in addition to dual antiplatelet therapy. Given the patient states that he was weaned himself off of SSRIs, continues to have hand tremors and intermittent anxiety, he was instructed to follow up with his psychiatrist at [facility]. He was also instructed to follow up with Cardiology in 1-2 weeks. He is agreeable with discharge plan. All questions answered Physical examination General: Alert and Oriented x3. No acute distress. Well-nourished. Eyes: EOMI. Anicteric. HENT: Moist mucous membranes. Lungs: Clear to auscultation bilaterally. No accessory muscle use. Cardiovascular: Regular rate and rhythm. No murmur. No JVD. Abdomen: Soft, non-tender and non-distended. No palpable masses. Extremities: No edema. Non-tender. Skin: No rashes or lesions. Warm. Neurologic: No focal neurological deficits. CN II-XII grossly intact, but not individually tested. Psychiatric: Cooperative. Appropriate mood and affect. Total time spent with patient discussing and formulating plan of care: 35 minutes. This medical document was created using an electronic medical record system with Number [employer]ation system. Although this document has been carefully reviewed, there may still be some phonetic and typographical errors. These areas are purely typographical due to imperfections of the software programs, and do not reflect any compromise in the patient's medical care. Consults/Reason for consult Cardiology: Chest pain Condition at Discharge: Good Final Diagnosis/Problems List Coronary artery disease involving LAD Secondary Diagnosis: -palpitations -bifascicular heart block, rule out second-degree type 1 heart block -acute coronary syndrome -obesity -anxiety disorder -leukocytosis -BPH -dyslipidemia -hypothyroidism -acute systolic heart failure with ejection fraction 35% Discharge Disposition: Home Discharge Instruct/Medications Diet: Cardiac 2g Na,low cholest Activity: No Restrictions, As Tolerated Follow Up/Referral: Follow up with [facility] within 1-2 weeks Follow up with [facility] within 1-2 weeks Medications: Coreg 3.125 mg p.o. b.i.d. Entresto half tablet p.o. b.i.d. Aspirin 81 mg p.o. daily Plavix 75 mg p.o. daily Spironolactone 12.5 mg p.o. daily Jardiance 10 mg p.o. daily Continue all home medications as designated on medication reconciliation 36 Discharge Statement: "Patient was advised to return to the ER or call 911 if any headaches, dizziness, shortness of breath, chest pain, abdominal pain, bleeding, fevers, or worsening of medical condition. Patient was counseled about treatment plan, medications, possible side effects, patientverbalized understanding. All questions were answered to the best of my ability. This discharge took greater then 30 minutes in planning, reviewing documentation, counseling the patient, and discussing with other team members." ASSESSMENT ASSESSMENT Assessment Coronary artery disease involving LAD Date of Service: Jun 11, 2024 Billing Provider: MELISSA BRAVO NP Common Visit Codes: 73180-WFT/OBS DISCH DAY >30min MELISSA BRAVO NP Jun 11, 2024 13:36
== END 2024-06-11 14:32 | disposition home or self-care (01) | DRG 321 ==
LOC: EDUNIT# 10:15 → ER 10:15 → EDBD 10:15 → TELE 15:01 → TELE-WESTW 18:00
PROVIDERS: ADMIT Nurse Practitioner Acute Care; ATTEND Nurse Practitioner Acute Care
PROC: 027135Z Dilation of Coronary Artery, Two Arteries with Two Drug-eluting Intraluminal Devices, Percutaneous Approach (ICD-10-PCS; principal; 2024-06-10)
PROC: 4A023N7 Measurement of Cardiac Sampling and Pressure, Left Heart, Percutaneous Approach (ICD-10-PCS; 2024-06-10)
PROC: B211YZZ Fluoroscopy of Multiple Coronary Arteries using Other Contrast (ICD-10-PCS; 2024-06-10)
PROC: B215YZZ Fluoroscopy of Left Heart using Other Contrast (ICD-10-PCS; 2024-06-10)
DX: I25.10 Atherosclerotic heart disease of native coronary artery without angina pectoris (principal); I50.21 Acute systolic (congestive) heart failure; I24.9 Acute ischemic heart disease, unspecified; I45.2 Bifascicular block; I11.0 Hypertensive heart disease with heart failure; E03.9 Hypothyroidism, unspecified; E66.9 Obesity, unspecified; E78.5 Hyperlipidemia, unspecified; F41.9 Anxiety disorder, unspecified; F32.A Depression, unspecified; N40.0 Benign prostatic hyperplasia without lower urinary tract symptoms; I44.1 Atrioventricular block, second degree; Z86.73 Personal history of transient ischemic attack (TIA), and cerebral infarction without residual deficits; I25.2 Old myocardial infarction; Z82.49 Family history of ischemic heart disease and other diseases of the circulatory system; Z87.891 Personal history of nicotine dependence; Z68.30 Body mass index [BMI] 30.0-30.9, adult
CPT/HCPCS: 36415; 71045; 80048; 80061; 81001; 83036; 83605; 83735; 83880; 84439; 84443; 84481; 84484; 85007; 85025; 85027; 85610; 85652; 85730; 86141; 86850; 86900; 86901; 87040; 92928; 92929; 93005; 93306; 93458; 93886; 99152; C1874; G0378; J2250; Q9967

== ENCOUNTER 2024-12-26 15:34 | Emergency (ER) | payer OTHER ==
[~2024-12-26] VITALS: Ht 175.3 cm; Wt 97.0 kg
[~2024-12-26 15:34] MED LIST changes: -AMOX250C3 PO; +ASPI1TAB20 PO; +ATOR40TA52 PO; +CARV-214 PO; +CLOP75TA70 PO; -DILT120C64; -DOXA2TAB84; +FLUT1AER7 IN; -HYDR50TA32 PO; -LEVO112T20 PO; +LEVO150T10 PO; -LORA-1121 PO; +MONT10TA23 PO; +OMEP-434 PO; +SACU1TAB PO; -SIMV40TA42; +SPIR25TA PO; +TAMS0.4C39 PO
[2024-12-26 15:48] VITALS: PULSE 72; RESP 12; O2SAT 97
[2024-12-26 15:56] LABS: Basophils # (auto) 0.1 10 ^3/uL (0-0.2); Basophils % (auto) 0.7 % (0.0-2.0); Eosinophils # (auto) 0.1 10 ^3/uL (0-0.8); Eosinophils % (auto) 1.1 % (0.0-7.0); Hematocrit 47.8 % (41.0-53.0); Lymphocytes # (auto) 1.3 10 ^3/uL (0.4-5.4); Lymphocytes % (auto) 15.3 % (10.0-50.0); Mean Corpuscular Hemoglobin 30.1 pg (28.0-32.0); Mean Corpuscular Hgb Conc. 33.5 g/dL (32.0-36.0); Mean Corpuscular Volume 89.7 fL (80.0-100.0); Monocytes # (auto) 0.9 10 ^3/uL (0-1.3); Monocytes % (auto) 10.5 % (0.0-12.0); Neutrophils # (auto) 6.1 10 ^3/uL (1.6-8.6); Neutrophils % (auto) 72.4 % (37.0-80.0); Nucleated Red Blood Cells % 0.1 %; Platelet Count (auto) 255 10^3/uL (140-450); Red Blood Cells 5.33 10^6/uL (4.5-5.90); Red Cell Distribution Width 14.4 % (11.8-14.3); White Blood Cell 8.4 10^3/uL (4.4-10.8)
--- NOTE | 2024-12-26 16:04 | ED.PDOC ---
History of Present Illness HPI Comments 79-year-old male who comes in with chief complaint of shortness for breath, dizziness and weakness. The patient went to his dental appointment and then states that he got somewhat anxious and then started exhibiting signs that were mentioned above. He states that this morning he has been feeling somewhat str jose alfredo. The patient denies any vomiting or diarrhea. When the paramedics arrived, the patient had a blood pressure of 112 that was systolic and then the systolic down to 84 upon standing. EN route, the patient's Accu-Chek was 168. Chief Complaint: Dizziness Time Seen by MD: 15:36 Primary Care Provider: ENEDELIA Reviewed Notes: Nurses Notes, Customer Experience Associate Notes, Medications, Allergies (NKDA) Allergies: Coded Allergies: Methysergide (Verified Allergy, Unknown, PSYCH/VISION, 05/14/23) Naproxen (Verified Allergy, Unknown, 05/14/23) Home Meds Active Scripts Spironolactone (Aldactone) 25 Mg Tab, 12.5 MG PO DAILY for 60 Days, #30 TAB 3 Refills Prov:MELISSA BRAVO NP 06/11/24 Sacubitril-Valsartan (Entresto 24-26 mg) 1 Tab Tab, 0.5 TAB PO BID for 60 Days, #60 TAB 2 Refills Prov:MELISSA BRAVO NP 06/11/24 Clopidogrel Bisulfate (CLOPIDOGREL) 75 Mg Tab, 75 MG PO DAILY for 60 Days, #60 TAB 2 Refills Prov:MELISSA BRAVO NP 06/11/24 Carvedilol (COREG) 3.125 Mg Tab, 3.125 MG PO Q12HR for 60 Days, #120 TAB 2 Refills Prov:MELISSA BRAVO J[employer] AND [employer]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 06/11/24 Reported Medications Levothyroxine Sodium (Levothyroxine Sodium) 150 Mcg Tab, 150 MCG PO QAM for 30 Days 06/08/24 Atorvastatin Calcium (ATORVASTATIN CALCIUM) 40 Mg Tab, 1 TAB PO DAILY, #30 TAB 5 Refills 06/08/24 Aspirin (Aspir-81) 81 Mg Tab, 1 TAB PO DAILY@DINNER, #30 TAB 5 Refills 06/08/24 Fluticasone-Salmeterol (Wixela Inhub 500-50 Mcg/Dose) 1 Aer Aer, 1 AER IN BID, AER 06/08/24 Tamsulosin Hcl (Tamsulosin Hcl) 0.4 Mg Cap, 0.4 MG PO QPM for 30 Days, MG 06/08/24 Montelukast Sodium (Singulair) 10 Mg Tab, 10 MG PO DAILY, TAB 06/07/24 Omeprazole Magnesium (Omeprazole) 20 Mg Tab, 20 MG PO BID, TAB 06/07/24 Information Source: Patient, Emergency Med Personnel Mode of Arrival: EMS Severity: Moderate Timing: Hours Duration: Since onset Prehospital treatment: Accucheck (One hundred sixty-eight), Electrician'S Assistant, IVF Associated signs and symptoms No associated nausea, vomiting or diarrhea Past Medical History PAST MEDICAL HISTORY: Anxiety, CHF, High Lipids, HTN, [place], Thyroid, TIA Surgical History: Appendectomy, Hernia Repair, Tonsillectomy Surgical History (Other): Back surgery Family History Family History: Family hx of heart donn Social History Smoker: Non-Smoker Alcohol: Denies ETOH Use Drugs: Marijuana Lives In: Home Constitutional: reports: weakness; denies: chills, diaphoresis, fatigue, fever, malaise, sweats, others EENTM: denies: blurred vision, double vision, ear bleeding, ear discharge, ear drainage, ear pain, ear ringing, eye pain, eye redness, hearing loss, mouth pain, mouth swelling, nasal discharge, nose bleeding, nose congestion, nose pain, photophobia, tearing, throat pain, throat swelling, voice changes, others Respiratory: reports: shortness of breath; denies: cough, hemoptysis, orthopnea, SOB at rest, SOB with excertion, stridor, wheezing, others Cardiovascular: denies: chest pain, dizzy spells, diaphoresis, Dyspnea on exertion, edema, irregular heart beat, left arm pain, lightheadedness, palpitations, PND, syncope, others Gastrointestinal: denies: abdomen distended, abdominal pain, blood streaked bowels, constipated, diarrhea, dysphagia, difficulty swallowing, hematemesis, melena, nausea, poor appetite, poor fluid intake, rectal bleeding, rectal pain, vomiting, others Genitourinary: denies: burning, dysuria, flank pain, frequency, hematuria, incontinence, penile discharge, penile sore, pain, testicle pain, testicle swelling, urgency, others Neurological: denies: dizziness, fainting, headache, left sided numbness, left sided weakness, numbness, paresthesia, pre-existing deficit, right sided numbness, right sided weakness, seizure, speech problems, tingling, tremors, weakness, others Musculoskeletal: denies: back pain, gout, joint pain, joint swelling, muscle pain, muscle stiffness, neck pain, others Integumetry: denies: bruises, change in color, change in hair/nails, dryness, laceration, lesions, lumps, rash, wounds, others Allergic/Immunocompromised: denies: Difficulty Healing, Frequent Infections, Hives, Itching, others Hematologic/Lymphatic: denies: anemia, blood clots, easy bleeding, easy bruising, swollen glands, others Endocrine: denies: excessive hunger, excessive sweating, excessive thirst, excessive urination, flushing, intolerance to cold, intolerance to heat, unexplained weight gain, unexplained weight loss, others Psychiatric: reports: anxiety; denies: bipolar disorder, depression, hopeless, panic disorder, schizophrenia, sleepless, suicidal, others Physical Exam General Appearance: Moderate Distress HEENT: Normal ENT Inspection, Pharynx Normal, TMs Normal Neck: Full Range of Motion, Non-Tender, Normal, Normal Inspection Respiratory: Chest Non-Tender, Lungs Clear, No Accessory Muscle Use, No Respiratory Distress, Normal Breath Sounds Cardiovascular: No Edema, No JVD, No Murmur, No Gallop, Normal Peripheral Pulses, Regular Rate/Rhythm Breast Exam: Deferred Gastrointestinal: No Organomegaly, Non Tender, No Pulsatile Mass, Normal Bowel Sounds, Soft Genitalia: Deferred Pelvic: Deferred Rectal: Deferred Extremities: No calf tenderness, Normal capillary refill, No pedal edema Musculoskeletal : Apperance: Normal Neurologic: Alert, coupon redemption clerk II-XII nml as Tested, Motor Weakness, No Sensory Deficits, Other (anxiety) Cerebellar Function: Normal Reflexes: Normal Skin: Dry, Normal Color, Warm Lymphatic: No Adenopathy Was a procedure done? Was a procedure done?: No EKG EKG : Pulse Rate (adult): 70 [place]: Normal Cardiac Rhythm: NSR Block: LBBB ST: Nonsp Differential Dx Considerations may include: Generalized weakness, ACS, [place] X-Ray, Labs, Meds, VS Vital Signs Date Time Temp Pulse Resp B/P (MAP) Pulse Ox O2 Delivery O2 Flow Rate FiO2 12/26/24 17:00 66 21 115/73 (87) 98 12/26/24 16:28 70 12/26/24 15:48 72 12 97 Room Air* 0 21 12/26/24 15:48 98.0 72 12 111/63 (79) 97 98.0 12/26/24 15:47 97.6 72 16 106/72 (83) 98 97.6 12/26/24 15:39 70 Lab Test 12/26/24 17:00 12/26/24 15:46 Range/Units Troponin I High Sensitivity Pending 5 </=54 ng/L White Blood Count 8.4 4.4-10.8 10^3/uL Red Blood Count 5.33 4.5-5.90 10^6/uL Hemoglobin 16.0 13.5-17.5 g/dL Hematocrit 47.8 41.0-53.0 % Mean Corpuscular Volume 89.7 80.0-100.0 fL Mean Corpuscular Hemoglobin 30.1 28.0-32.0 pg Mean Corpuscular Hemoglobin Concent 33.5 32.0-36.0 g/dL Red Cell Distribution Width 14.4 H 11.8-14.3 % Platelet Count 255 140-450 10^3/uL Mean Platelet Volume 7.8 6.9-10.8 fL Neutrophils (%) (Auto) 72.4 37.0-80.0 % Lymphocytes (%) (Auto) 15.3 10.0-50.0 % Monocytes (%) (Auto) 10.5 0.0-12.0 % Eosinophils (%) (Auto) 1.1 0.0-7.0 % Basophils (%) (Auto) 0.7 0.0-2.0 % Neutrophils # (Auto) 6.1 1.6-8.6 10 ^3/uL Lymphocytes # (Auto) 1.3 0.4-5.4 10 ^3/uL Monocytes # (Auto) 0.9 0-1.3 10 ^3/uL Eosinophils # (Auto) 0.1 0-0.8 10 ^3/uL Basophils # (Auto) 0.1 0-0.2 10 ^3/uL Nucleated Red Blood Cells 0.1 % Sodium Level 141 136-145 mmol/L Potassium Level 3.9 3.5-5.1 mmol/L Chloride Level 110 H 98-107 mmol/L Carbon Dioxide Level 22 20-31 mmol/L Anion Gap 9 5-15 Blood Urea Nitrogen 16 9-23 mg/dL Creatinine 1.20 0.700-1.30 mg/dL Glomerular Filtration Rate Calc 62 >90 mL/min BUN/Creatinine Ratio 13.3 10.0-20.0 Serum Glucose 187 H 74-106 mg/dL Calcium Level 10.2 8.7-10.4 mg/dL Magnesium Level 2.1 1.6-2.6 mg/dL Current Medications Medications (Trade) Dose Ordered Sig/Shruthi Route Start Time Stop Time Status Last Admin Lorazepam (Ativan Inj) 1 mg ONCE ONCE IV 12/26/24 17:00 12/26/24 17:01 DC 12/26/24 17:02 The patient is complaining of some chest discomfort The patient was given aspirin here in the emergency department's For the anxiety, the patient was given Ativan 1 mg IV push The patient's CBC is within normal limits The chemistry panel is within normal limits The magnesium level is within normal limits The patient had a troponin level of five initially Because of the persistent chest pain we did contact [facility]. We feel that the patient should be observed in the hospital and so they are going to be transferring the patient to their facility The authorization #[id number] The patient understands and agrees with the management. Images Reviewed?: Images reviewed and evaluated by me Time of 1ST Reevaluation: 16:27 Reevaluation 1ST: Unchanged Patient Education/Counseling: Diagnosis, Treatment, Prognosis Family Education/Counseling: No Family Present Departure 1 Departure Time of Disposition: 17:50 Impression: Primary Impression: Acute chest pain Additional Impression: Acute anxiety Disposition: 51 HOSPICE/MEDICAL FACILITY Condition: Fair Critical Care Note Critical Care Time?: Yes (45 min-critical care time only) Stability Stability form required: Yes Stable for transfer: Intended for transfer (Health plan request transfer), To designated facility Heart Score Heart Score: Heart Score Response (Comments) Value History Slightly Suspicious 0 EKG Normal 0 Age >65 2 Risk Factors 1 or 2 risk factors 1 Troponin Normal limit 0 Total 3 BRITTNEY COUCH MD December 26, 2024 16:03
[2024-12-26 16:05] LABS: Carbon Dioxide 22 mmol/L (20-31); Potassium 3.9 mmol/L (3.5-5.1); Sodium 141 mmol/L (136-145)
[2024-12-26 16:06] LABS: Calcium 10.2 mg/dL (8.7-10.4); Chloride 110 mmol/L (98-107)
[2024-12-26 16:11] LABS: BUN/Creatinine Ratio 13.3 (10.0-20.0); Blood Urea Nitrogen 16 mg/dL (9-23); Magnesium 2.1 mg/dL (1.6-2.6)
[2024-12-26 16:13] LABS: Glucose 187 mg/dL (74-106)
[2024-12-26 16:14] LABS: Anion Gap 9 (5-15)
--- NOTE | 2024-12-26 16:20 | DVH ---
CHEST RADIOGRAPH Indication: sob Technique: Single frontal view of the chest was obtained COMPARISON: XY CHEST PORTABLE on DOS: 06/07/24, XY CHEST PORTABLE on DOS: 05/26/23 FINDINGS: Lines and Tubes: None Lungs: Mild congestion Pleura: No effusion. No pneumothorax. Cardiomediastinal contours: Cardiomegaly Bones: Unremarkable IMPRESSION: Mild congestion
[2024-12-26] MEDS: LORazepam 2MG/ML-1ML VIAL IV ONE (17:02)
[2024-12-26 18:43] LABS: Urine Bacteria None Seen /hpf (None Seen)
[2024-12-26 19:02] LABS: Urine Blood Negative /uL (Negative); Urine Clarity Clear (Clear); Urine Color Yellow (Yellow); Urine Hyaline Cast FEW /lpf (0 - 2); Urine Mucus FEW (None Seen); Urine Protein, UAD Negative (Negative); Urine Specific Gravity 1.011 (1.001-1.035); Urine Squamous Epithelial Cell FEW /hpf (<5); Urine Urobilinogen Normal (Negative); Urine WBC < 1 /HPF (0-3)
[2024-12-26 19:15] VITALS: PULSE 62; RESP 14; O2SAT 93
--- NOTE | 2024-12-26 19:41 | ECG ---
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
[2024-12-26 19:49] VITALS: BP 129/69; PULSE 64; RESP 14; TEMP 98; O2SAT 95
== END 2024-12-26 17:54 | disposition short-term general hospital (02) ==
LOC: ER 15:34 → EDBD 15:34 → ER 17:54
DX: F41.9 Anxiety disorder, unspecified (principal); I11.0 Hypertensive heart disease with heart failure; I50.9 Heart failure, unspecified; E78.5 Hyperlipidemia, unspecified; I21.9 Acute myocardial infarction, unspecified; Z86.73 Personal history of transient ischemic attack (TIA), and cerebral infarction without residual deficits; Z90.49 Acquired absence of other specified parts of digestive tract; Z90.89 Acquired absence of other organs; Z98.890 Other specified postprocedural states; Z79.02 Long term (current) use of antithrombotics/antiplatelets; Z79.51 Long term (current) use of inhaled steroids; Z79.82 Long term (current) use of aspirin; Z79.899 Other long term (current) drug therapy; Z88.6 Allergy status to analgesic agent
CPT/HCPCS: 36415; 71045; 80048; 81001; 83735; 84484; 85025; 93005; 96374; 99285; J2060

== ENCOUNTER 2024-12-30 20:36 | Emergency (ER) | payer OTHER ==
[~2024-12-30] VITALS: Ht 177.8 cm; Wt 77.3 kg
--- NOTE | 2024-12-30 20:58 | ED.PDOC ---
History of Present Illness HPI Comments This is a 79-year-old male who comes in with chief complaint of chest pain. The patient states that seen here in the past and was transferred down to [place] for possible CHF. The patient states that last night he developed some chest discomfort which radiated to the left arm. He states that the symptoms persisted through the night and then at approximately 6:00 a.m. in the morning the chest pain worsened. There has been no nausea, vomiting or diarrhea. He is complaining of some shortness of breath. EN route, the patient was given aspirin as well as nitroglycerin without any relief. The patient thinks he may have had an OH in the past but he has had a stent placed here at [facility] in the past. The patient is also being treated for anxiety any seems somewhat anxious upon arrival to the emergency department's. He currently lives alone. Chief Complaint: Chest Pain Time Seen by MD: 20:46 Primary Care Provider: ENEDELIA Reviewed Notes: Nurses Notes, Industrial Controller Notes, Medications, Allergies (Allergies listed above) Allergies: Coded Allergies: Methysergide (Verified Allergy, Unknown, PSYCH/VISION, 05/14/23) Naproxen (Verified Allergy, Unknown, 05/14/23) Home Meds Active Scripts Spironolactone (Aldactone) 25 Mg Tab, 12.5 MG PO DAILY for 60 Days, #30 TAB 3 Refills Prov:MELISSA BRAVO NP 06/11/24 Sacubitril-Valsartan (Entresto 24-26 mg) 1 Tab Tab, 0.5 TAB PO BID for 60 Days, #60 TAB 2 Refills Prov:MELISSA BRAVO NP 06/11/24 Clopidogrel Bisulfate (CLOPIDOGREL) 75 Mg Tab, 75 MG PO DAILY for 60 Days, #60 TAB 2 Refills Prov:MELISSA BRAVO NP 06/11/24 Carvedilol (COREG) 3.125 Mg Tab, 3.125 MG PO Q12HR for 60 Days, #120 TAB 2 Refills Prov:MELISSA BRAVO NP 06/11/24 Reported Medications Levothyroxine Sodium (Levothyroxine Sodium) 150 Mcg Tab, 150 MCG PO QAM for 30 Days 06/08/24 Atorvastatin Calcium (ATORVASTATIN CALCIUM) 40 Mg Tab, 1 TAB PO DAILY, #30 TAB 5 Refills 06/08/24 Aspirin (Aspir-81) 81 Mg Tab, 1 TAB PO DAILY@DINNER, #30 TAB 5 Refills 06/08/24 Fluticasone-Salmeterol (Wixela Inhub 500-50 Mcg/Dose) 1 Aer Aer, 1 AER IN BID, AER 06/08/24 Tamsulosin Hcl (Tamsulosin Hcl) 0.4 Mg Cap, 0.4 MG PO QPM for 30 Days, MG 06/08/24 Montelukast Sodium (Singulair) 10 Mg Tab, 10 MG PO DAILY, TAB 06/07/24 Omeprazole Magnesium (Omeprazole) 20 Mg Tab, 20 MG PO BID, TAB 06/07/24 Information Source: Patient (Three), Emergency Med Personnel Mode of Arrival: EMS Severity: Moderate Timing: Hours Duration: Since onset Prehospital treatment: 12 Lead EKG, Accucheck (149), ASA, Computational Linguist, IVF, NTG Location: Chest pain is left-sided and radiates to the left arm. Associated signs and symptoms Associated shortness of breath Past Medical History PAST MEDICAL HISTORY: Anxiety, CHF, Depression, High Lipids, HTN, OH, Thyroid, TIA Surgical History: Appendectomy, Hernia Repair, Tonsillectomy Surgical History (Other): Cataract surgery, back surgery Family History Family History: Family hx of heart donn Social History Smoker: Non-Smoker Alcohol: Denies ETOH Use Drugs: Denies Drug Use Lives In: Home Constitutional: denies: chills, diaphoresis, fatigue, fever, malaise, sweats, weakness, others EENTM: denies: blurred vision, double vision, ear bleeding, ear discharge, ear drainage, ear pain, ear ringing, eye pain, eye redness, hearing loss, mouth pain, mouth swelling, nasal discharge, nose bleeding, nose congestion, nose pain, photophobia, tearing, throat pain, throat swelling, voice changes, others Respiratory: reports: shortness of breath; denies: cough, hemoptysis, orthopnea, SOB at rest, SOB with excertion, stridor, wheezing, others Cardiovascular: reports: chest pain; denies: dizzy spells, diaphoresis, Dyspnea on exertion, edema, irregular heart beat, left arm pain, lightheadedness, palpitations, PND, syncope, others Gastrointestinal: denies: abdomen distended, abdominal pain, blood streaked bowels, constipated, diarrhea, dysphagia, difficulty swallowing, hematemesis, melena, nausea, poor appetite, poor fluid intake, rectal bleeding, rectal pain, vomiting, others Genitourinary: denies: burning, dysuria, flank pain, frequency, hematuria, incontinence, penile discharge, penile sore, pain, testicle pain, testicle swelling, urgency, others Neurological: denies: dizziness, fainting, headache, left sided numbness, left sided weakness, numbness, paresthesia, pre-existing deficit, right sided numbness, right sided weakness, seizure, speech problems, tingling, tremors, weakness, others Musculoskeletal: denies: back pain, gout, joint pain, joint swelling, muscle pain, muscle stiffness, neck pain, others Integumetry: denies: bruises, change in color, change in hair/nails, dryness, laceration, lesions, lumps, rash, wounds, others Allergic/Immunocompromised: denies: Difficulty Healing, Frequent Infections, Hives, Itching, others Hematologic/Lymphatic: denies: anemia, blood clots, easy bleeding, easy bruising, swollen glands, others Endocrine: denies: excessive hunger, excessive sweating, excessive thirst, excessive urination, flushing, intolerance to cold, intolerance to heat, unexplained weight gain, unexplained weight loss, others Psychiatric: denies: anxiety, bipolar disorder, depression, hopeless, panic disorder, schizophrenia, sleepless, suicidal, others Physical Exam General Appearance: Moderate Distress, Obese HEENT: Normal ENT Inspection, Pharynx Normal, TMs Normal Neck: Full Range of Motion, Non-Tender, Normal, Normal Inspection Respiratory: Chest Non-Tender, Lungs Clear, No Accessory Muscle Use, No Respiratory Distress, Normal Breath Sounds Cardiovascular: No Edema, No JVD, No Murmur, No Gallop, Normal Peripheral Pulses, Regular Rate/Rhythm Breast Exam: Deferred Gastrointestinal: No Organomegaly, Non Tender, No Pulsatile Mass, Normal Bowel Sounds, Soft Genitalia: Deferred Pelvic: Deferred Rectal: Deferred Extremities: No calf tenderness, Normal capillary refill, Normal inspection, N ormal range of motion, Non-tender, No pedal edema Musculoskeletal : Apperance: Normal Neurologic: Alert, vasc tech II-XII nml as Tested, No Motor Deficits, No Sensory Deficits, Other (Anxiety at this time) Cerebellar Function: Normal Reflexes: Normal Skin: Dry, Normal Color, Warm Lymphatic: No Adenopathy Was a procedure done? Was a procedure done?: No EKG EKG : Pulse Rate (adult): 73 [place]: Normal Cardiac Rhythm: Afib Block: None ST: Nonsp Differential Dx Considerations may include: ACS, OH, generalized weakness, electrolyte imbalance X-Ray, Labs, Meds, VS Vital Signs Date Time Temp Pulse Resp B/P (MAP) Pulse Ox O2 Delivery O2 Flow Rate FiO2 12/30/24 21:26 60 12/30/24 20:58 73 12/30/24 20:38 73 12/30/24 20:36 98.0 80 14 92/61 (71) 98 98.0 Lab Test 12/30/24 20:54 Range/Units White Blood Count 8.1 4.4-10.8 10^3/uL Red Blood Count 5.15 4.5-5.90 10^6/uL Hemoglobin 15.4 13.5-17.5 g/dL Hematocrit 46.1 41.0-53.0 % Mean Corpuscular Volume 89.5 80.0-100.0 fL Mean Corpuscular Hemoglobin 30.0 28.0-32.0 pg Mean Corpuscular Hemoglobin Concent 33.5 32.0-36.0 g/dL Red Cell Distribution Width 14.4 H 11.8-14.3 % Platelet Count 272 140-450 10^3/uL Mean Platelet Volume 8.0 6.9-10.8 fL Neutrophils (%) (Auto) 65.3 37.0-80.0 % Lymphocytes (%) (Auto) 21.7 10.0-50.0 % Monocytes (%) (Auto) 10.9 0.0-12.0 % Eosinophils (%) (Auto) 1.3 0.0-7.0 % Basophils (%) (Auto) 0.8 0.0-2.0 % Neutrophils # (Auto) 5.3 1.6-8.6 10 ^3/uL Lymphocytes # (Auto) 1.8 0.4-5.4 10 ^3/uL Monocytes # (Auto) 0.9 0-1.3 10 ^3/uL Eosinophils # (Auto) 0.1 0-0.8 10 ^3/uL Basophils # (Auto) 0.1 0-0.2 10 ^3/uL Nucleated Red Blood Cells 0.0 % Sodium Level 139 136-145 mmol/L Potassium Level 4.3 3.5-5.1 mmol/L Chloride Level 107 98-107 mmol/L Carbon Dioxide Level 24 20-31 mmol/L Anion Gap 8 5-15 Blood Urea Nitrogen 18 9-23 mg/dL Creatinine 1.19 0.700-1.30 mg/dL Glomerular Filtration Rate Calc 63 >90 mL/min BUN/Creatinine Ratio 15.1 10.0-20.0 Serum Glucose 159 H 74-106 mg/dL Calcium Level 10.2 8.7-10.4 mg/dL Troponin I High Sensitivity 4 </=54 ng/L B-Type Natriuretic Peptide 165.65 0-100 pg/mL IV Hep-Lock was established The patient's CBC is within normal limits The chemistry panel is within normal limits. The BNP is 165.85 The troponin level is negative At this time, the patient will be signed out to Dr. Anderson The chest x-ray is pending Images Reviewed?: Images reviewed and evaluated by me Time of 1ST Reevaluation: 20:58 Reevaluation 1ST: Unchanged Patient Education/Counseling: Diagnosis, Treatment, Prognosis Family Education/Counseling: No Family Present Departure 1 Departure Time of Disposition: 20:58 Impression: Primary Impression: Acute coronary syndrome Disposition: 30 STILL A PATIENT Condition: Fair Critical Care Note Critical Care Time?: Yes (45 min-critical care time only) Stability Stability form required: Yes Unstable for transfer: Telemetry monitoring (Telemetry monitoring required), ED Physician Assesment (Clinical assesment) Heart Score Heart Score: Heart Score Response (Comments) Value History Moderate Suspicious 1 EKG Repolarization Disturb 1 Age >65 2 Risk Factors >3 or Hx ASHD 2 Troponin Normal limit 0 Total 6 BRITTNEY COUCH MD Dec 30, 2024 20:58
[2024-12-30 21:12] LABS: Basophils # (auto) 0.1 10 ^3/uL (0-0.2); Basophils % (auto) 0.8 % (0.0-2.0); Eosinophils # (auto) 0.1 10 ^3/uL (0-0.8); Eosinophils % (auto) 1.3 % (0.0-7.0); Hematocrit 46.1 % (41.0-53.0); Hemoglobin 15.4 g/dL (13.5-17.5); Lymphocytes # (auto) 1.8 10 ^3/uL (0.4-5.4); Lymphocytes % (auto) 21.7 % (10.0-50.0); Mean Corpuscular Hgb Conc. 33.5 g/dL (32.0-36.0); Mean Corpuscular Volume 89.5 fL (80.0-100.0); Monocytes # (auto) 0.9 10 ^3/uL (0-1.3); Monocytes % (auto) 10.9 % (0.0-12.0); Neutrophils # (auto) 5.3 10 ^3/uL (1.6-8.6); Neutrophils % (auto) 65.3 % (37.0-80.0); Platelet Count (auto) 272 10^3/uL (140-450); Red Blood Cells 5.15 10^6/uL (4.5-5.90); Red Cell Distribution Width 14.4 % (11.8-14.3); White Blood Cell 8.1 10^3/uL (4.4-10.8)
[2024-12-30 21:19] LABS: Potassium 4.3 mmol/L (3.5-5.1); Sodium 139 mmol/L (136-145)
[2024-12-30 21:20] LABS: Anion Gap 8 (5-15); Carbon Dioxide 24 mmol/L (20-31)
[2024-12-30 21:21] LABS: Calcium 10.2 mg/dL (8.7-10.4)
[2024-12-30 21:25] LABS: BUN/Creatinine Ratio 15.1 (10.0-20.0); Blood Urea Nitrogen 18 mg/dL (9-23)
--- NOTE | 2024-12-30 21:28 | ECG ---
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
[2024-12-30 21:35] LABS: Chloride 107 mmol/L (98-107); Glucose 159 mg/dL (74-106)
--- NOTE | 2024-12-30 22:35 | ECG ---
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
--- NOTE | 2024-12-30 22:47 | DVH ---
CHEST RADIOGRAPH Indication: CP Technique: Single frontal view of the chest was obtained Comparison: XY CHEST PORTABLE on DOS: 12/26/24, XY CHEST PORTABLE on DOS: 06/07/24, XY CHEST PORTABLE o n DOS: 05/26/23 Findings/ IMPRESSION: Mild cardiomegaly otherwise no active cardiopulmonary disease.
[2024-12-30] MEDS: LORazepam 2MG/ML-1ML VIAL IV ONE (22:57)
[2024-12-30 23:09] LABS: Urine Bacteria None Seen /hpf (None Seen)
[2024-12-30 23:27] LABS: Urine Blood Negative /uL (Negative); Urine Clarity Clear (Clear); Urine Color Yellow (Yellow); Urine Mucus FEW (None Seen); Urine Protein, UAD Negative (Negative); Urine Specific Gravity 1.012 (1.001-1.035); Urine Squamous Epithelial Cell FEW /hpf (<5); Urine Urobilinogen Normal (Negative); Urine WBC 1 /HPF (0-3); Urine pH 5.5 (5.0-9.0)
[2024-12-31 00:33] VITALS: BP 111/82; PULSE 66; RESP 19; TEMP 97.9; O2SAT 95
--- NOTE | 2025-01-02 07:05 | ECG ---
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
== END 2024-12-30 22:16 | disposition short-term general hospital (02) ==
LOC: EDBD 20:36 → ER 20:39
DX: I24.9 Acute ischemic heart disease, unspecified (principal); F41.9 Anxiety disorder, unspecified; I11.0 Hypertensive heart disease with heart failure; I25.2 Old myocardial infarction; I50.9 Heart failure, unspecified; E78.5 Hyperlipidemia, unspecified; F32.A Depression, unspecified; Z98.890 Other specified postprocedural states; Z90.89 Acquired absence of other organs; Z90.49 Acquired absence of other specified parts of digestive tract; Z86.73 Personal history of transient ischemic attack (TIA), and cerebral infarction without residual deficits; Z88.6 Allergy status to analgesic agent; Z79.899 Other long term (current) drug therapy; Z79.890 Hormone replacement therapy; Z79.82 Long term (current) use of aspirin; Z79.51 Long term (current) use of inhaled steroids; Z79.02 Long term (current) use of antithrombotics/antiplatelets; Z88.1 Allergy status to other antibiotic agents
CPT/HCPCS: 36415; 71045; 80048; 81001; 82947; 83880; 84484; 85025; 93005; 96374; 99291; J2060